=== PATIENT | female | born 1985 | race Caucasian/White ===

== ENCOUNTER 2016-10-04 00:24 | Emergency (ER) | payer MEDICAID ==
[~2016-10-04] VITALS: Ht 162.6 cm; Wt 65.0 kg
[~2016-10-04 00:24] MED LIST: ACET500T98; CEPH-443 PO; IBUP-1542 PO
[2016-10-04 00:42] VITALS: Ht 162.6 cm; Wt 65.0 kg
--- NOTE | 2016-10-04 01:46 | ERD ---
ER Documentation Chief Complaint Date/Time DATE: 10/04/16 TIME: 01:41 Chief Complaint left shoulder pain, left arm pain. anxiety, pelvic pain HPI 22-year-old female presents to emergency department for multiple complaints. Patient's complaining of the shoulder pain radiating into the left arm, chest pain, abdominal pain for 2 days. Patient does complain of left chest pain, left shoulder pain left arm pain, sharp pain, 6/10 scale, not better or worse with anything. Patient also does complain of generalized lower abdominal pain, cramping pain, 6/10 scale, now better or worse with anything. Patient did not take any medications or symptoms. Patient denies any vomiting diarrhea or constipation. Patient also is feeling anxious, patient feels palpitations at times. She denies any trauma on affected areas. ROS All systems reviewed and are negative except as per history of present illness. Medications Home Meds Active Scripts Cephalexin* (Keflex*) 500 Mg Capsule, 500 MG PO QID for 7 Days, CAP Prov:ALEXA SAUNDERS NP 10/04/16 Docusate Sodium* (Colace*) 100 Mg Capsule, 100 MG PO TID, #30 CAP Prov:ALEXA SAUNDERS NP 10/04/16 Polyethylene Glycol* (Miralax*) 17 Gm Powd.pack, 17 GM PO DAILY, #7 Prov:ALEXA SAUNDERS NP 10/04/16 Tramadol HCl (Tramadol HCl) 50 Mg Tablet, 50 MG PO Q6 Y for PAIN, #20 TAB Prov:ALEXA SAUNDERS NP 10/04/16 Ibuprofen* (Motrin*) 600 Mg Tab, 600 MG PO Q6H Y for PAIN AND OR ELEVATED TEMP, #30 TAB Prov:ALEXA SAUNDERS NP 10/04/16 Cephalexin* (Keflex*) 500 Mg Capsule, 500 MG PO QID for 7 Days, CAP Prov:EDUARDO ZABALA MD 07/04/16 Ibuprofen* (Motrin*) 600 Mg Tab, 600 MG PO Q6, #15 TAB Prov:EDUARDO ZABALA MD 07/04/16 Reported Medications Acetaminophen (Tylenol) 500 Mg Tab 11/29/12 Allergies Allergies: Coded Allergies: No Known Allergy (Unverified , 07/04/16) PMhx/Soc Medical and Surgical Hx: pt denies Medical Hx, pt denies Surgical Hx History of Surgery: No Anesthesia Reaction: No Hx Neurological Disorder: No Hx Respiratory Disorders: No Hx Cardiac Disorders: No Hx Psychiatric Problems: No Hx Miscellaneous Medical Probl: No Hx Alcohol Use: No Hx Substance Use: No Hx Tobacco Use: No FmHx Family History: No coronary disease, No diabetes, No other Physical Exam Vitals Vital Signs Date Time Temp Pulse Resp B/P Pulse Ox O2 Delivery O2 Flow Rate FiO2 10/04/16 00:42 98.3 73 20 126/71 100 Physical Exam GENERAL: The patient is well developed and appropriate for usual state of health, in no apparent distress. CHEST: Clear to auscultation bilaterally. There are no rales, wheezes or rhonchi. HEART: Regular rate and rhythm. No murmurs, clicks, rubs or gallops. No S3 or S4. ABDOMEN: Soft, nontender and nondistended. Good bowel sounds. No rebound or guarding. No gross peritonitis. No gross organomegaly or masses. No Bautista sign or McBurney point tenderness. BACK: No midline or flank tenderness. EXTREMITIES: Equal pulses bilaterally. There is no peripheral clubbing, cyanosis or edema. No focal swelling or erythema. Full range of motion. Grossly neurovascularly intact. NEURO: Alert and oriented. Cranial nerves 2-12 intact. Motor strength in all 4 extremities with 5/5 strength. Sensation grossly intact. Normal speech and gait. SKIN: There is no apparent rash or petechia. The skin is warm and dry. HEMATOLOGIC AND LYMPHATIC: There is no evidence of excessive bruising or lymphedema. No gross cervical, axillary, or inguinal lymphadenopathy. Result Diagram: 10/04/1613810/04/16138 Results 24 hrs Laboratory Tests Test 10/04/16 01:39 10/04/16 02:19 Alanine Aminotransferase (ALT/SGPT) 23IU/L Albumin 4.2g/dl Albumin/Globulin Ratio 1.16 Alkaline Phosphatase 76IU/L Anion Gap 17 Aspartate Amino Transf (AST/SGOT) 29IU/L Basophils # 0.010^3/ul Basophils % 0.3% Blood Urea Nitrogen 14mg/dl Calcium Level 8.7mg/dl Carbon Dioxide Level 26mmol/L Chloride Level 104mmol/L Creatinine 0.61mg/dl Direct Bilirubin 0.00mg/dl Eosinophils # 0.110^3/ul Eosinophils % 1.3% Globulin 3.60g/dl Glucose Level 112mg/dl Hematocrit 35.4% Hemoglobin 12.0g/dl Indirect Bilirubin 0.2mg/dl Lipase 114U/L Lymphocytes # 1.910^3/ul Lymphocytes % 24.5% Mean Corpuscular Hemoglobin 30.2pg Mean Corpuscular Hemoglobin Concent 33.9g/dl Mean Corpuscular Volume 89.1fl Mean Platelet Volume 9.8fl Monocytes # 0.510^3/ul Monocytes % 6.7% Neutrophils # 5.210^3/ul Neutrophils % 67.2% Nucleated Red Blood Cells # 0.010^3/ul Nucleated Red Blood Cells % 0.0/100WBC Platelet Count 78788^3/UL Potassium Level 3.5mmol/L Red Blood Count 3.9710^6/ul Red Cell Distribution Width 13.0% Sodium Level 143mmol/L Total Bilirubin 0.2mg/dl Total Protein 7.8g/dl Troponin I < 0.010ng/ml White Blood Count 7.710^3/ul Bedside Urine Blood 3+ Bedside Urine Glucose (UA) Negative Bedside Urine Ketones (LAB) Negative Bedside Urine Leukocyte Esterase (L Trace Bedside Urine Nitrite (LAB) Negative Bedside Urine Protein (LAB) Negative Bedside Urine pH (LAB) 6.0 EKG was done, read by me and is normal sinus rhythm at a rate of 71 normal axis , there is no ST changes or changes in the EKG that indicates any cardiac emergencies at this time. Patient's EKG was also reviewed by Dr. Paz . Impression: no acute findings on EKG PROCEDURE: XR Chest. CLINICAL INDICATION: Chest pain. TECHNIQUE: Single frontal view of the chest was obtained COMPARISON: None FINDINGS: The heart and mediastinum are within normal limits. The lungs are clear. There is no pleural effusion or pneumothorax. IMPRESSION: No acute disease. RPTAT: [facility] Physician Valery Date Time Electronically viewed and signed by Physician Valery on 10/04/2016 01:55 PROCEDURE: XR left shoulder. CLINICAL INDICATION: Left shoulder pain. TECHNIQUE: 2 views of the left shoulder were performed. COMPARISON: None. FINDINGS: There is normal osseous mineralization and alignment. No acute fracture or osseous lesion is identified. There are normal joints without evidence of arthritis or dislocation. The soft tissues are unremarkable. IMPRESSION: Unremarkable left shoulder. RPTAT: [facility] Physician Valery Date Time Electronically viewed and signed by Physician Valery on 10/04/2016 01:54 PROCEDURE: CT ABDOMEN/PELVIS WITHOUT CONTRAST CLINICAL INDICATION: 31-year-old female with abdominal pain. TECHNIQUE: The study was performed utilizing a [employer] 64-slice CT scanner. Direct axial sections were obtained through the abdomen and pelvis without the use of intravenous contrast material. Sagittal and coronal reformations were obtained. Automated exposure control and iterative reconstruction techniques were utilized for this examination. The images were reviewed on a PACS workstation. CTD/vol = 7.6 mGy; Total Exam DLP = 416.3 mGy- cm. COMPARISON: None. FINDINGS: The lung bases are unremarkable. There is no evidence for significant pleural effusion. The liver has a normal size and contour. There is a nonspecific right hepatic calcific density on axial image 3-33 measuring approximately 4 x 4 mm. There is an additional right hepatic calcific density on axial image 3- 41 measuring 6 x 3 mm. No intrahepatic nor extrahepatic biliary ductal dilatation is seen. The gallbladder demonstrates no wall thickening nor pericholecystic fluid. No biliary stones are evident. The pancreas is without areas of abnormal attenuation. The spleen is identified and has a normal size without abnormal density. The adrenal glands are unremarkable. The kidneys are without abnormal density. No hydroureteronephrosis nor nephroureterolithiasis is evident. The urinary bladder contains urine. There is retained stool within the ascending and transverse colon without obstruction.. The appendix is visualized and is without abnormal thickening or surrounding inflammatory reaction. There is an intrauterine device within the uterus. There is a left ovarian cyst measuring approximately 1.8 x 1.1 x 1.3 cm. There is no significant free fluid. Shotty mesenteric lymph nodes are seen. The aortoiliac vessels are without aneurysmal dilatation. The osseous structures are intact. IMPRESSION: 1. Nonspecific right hepatic small calcific densities which may be due to prior granulomatous disease. 2. No CT evidence for obstructive uropathy or renal calculi. 3. Retained stool within the colon without obstruction. 4. No CT evidence for appendicitis. 5. Shotty mesenteric lymph nodes. 6. Left ovarian cyst. 7. Intrauterine device. .Adithya Rogers MD, MD Date Time Electronically viewed and signed by .Adithya Rogers MD, on 10/04/2016 03:01 .M/ Procedures/[facility] Medical Decision Making: Patient's symptoms of abdominal pain is nonspecific at this time, possible constipation related, patient also has ovarian cyst may be causing some of the pain. There is low suspicion for abdominal emergencies at this time. Patients abdominal exam is normal at this time. Patients radiology exam does not show any abdominal emergencies at this time. There is low suspicion for appendicitis, cholecystitis, abdominal aortic aneurysms or peritonitis at this time. There is low suspicion for sepsis. Patient appears well and is hemodynamically stable. Patient's chest pain and shoulder pain is nonspecific, possible musculoskeletal pain. Patient also can have anxiety causing the symptoms. There is low suspicion for cardiopulmonary emergencies at this time. Patient has low risk factors. EKG is normal, there is no changes in the EKG that indicates cardiac emergencies. Chest X-ray does not show cardiopulmonary emergencies at this time. There is low suspicion for aortic aneurysm, myocardial infarction, pneumothorax, pleural effusion, pulmonary embolism, or any other cardiopulmonary emergencies at this time. Cardiac markers are normal. Patient's shoulder and arm pain is most likely consistent with a contusion or a sprain. There is no suspicion for neurovascular compromise. Patient has intact sensation and circulation of the affected extremity. There is low suspicion for septic arthritis. Patient does not have any fever. Radiology exams of the affected area does not show any fracture or dislocation. Patient also had urinary tract infection. There is low suspicion for pyelonephritis. There is low suspicion for abdominal emergencies at this time. Patients abdominal exam is normal. There is low suspicion for sepsis. Patient appears well and is hemodynamically stable. Disposition: Home. Condition: Stable Prescription ibuprofen, Colace, MiraLAX, tramadol, Keflex Instructions: Patient is advised to take medications as prescribed. Patient is advised to rest, increase fluid intake and do brat diet for next 1-2 days and progress as tolerated. Patient is advised that if symptoms are worse, severe abdominal pain, uncontrolled vomiting, high fever, severe flank pain, worst signs and symptoms, to return to the emergency department immediately. Otherwise, patient can follow up with primary care doctor in 5-7 days. Departure Diagnosis: Primary Impression: Constipation Constipation type: unspecified constipation type Qualified Code: K59.00 - Constipation, unspecified constipation type Additional Impressions: Ovarian cyst Laterality: left Qualified Code: N83.202 - Cyst of left ovary Anxiety Shoulder pain Laterality: left Chronicity: acute Qualified Code: M25.512 - Acute pain of left shoulder UTI (urinary tract infection) Urinary tract infection type: acute cystitis Hematuria presence: without hematuria Qualified Code: N30.00 - Acute cystitis without hematuria Condition: Stable Patient Instructions: Anxiety Reaction, Constipation (Adult), Ovarian Cyst, Shoulder Pain (Uncertain Cause) Additional Instructions: Patient is advised to take medications as prescribed. Patient is advised to rest, increase fluid intake and do brat diet for next 1-2 days and progress as tolerated. Patient is advised that if symptoms are worse, severe abdominal pain , uncontrolled vomiting, high fever, severe flank pain, worst signs and symptoms , to return to the emergency department immediately. Otherwise, patient can follow up with primary care doctor in 5-7 days. ALEXA SAUNDERS NP Oct 04, 2016 01:46
--- NOTE | 2016-10-04 01:55 | RADRPT ---
PROCEDURE: XR left shoulder. CLINICAL INDICATION: Left shoulder pain. TECHNIQUE: 2 views of the left shoulder were performed. COMPARISON: None. FINDINGS: There is normal osseous mineralization and alignment. No acute fracture or osseous lesion is identified. There are normal joints without evidence of arthritis or dislocation. The soft tissues are unremarkable. IMPRESSION: Unremarkable left shoulder. RPTAT: [facility] Physician Valery Date Time Electronically viewed and signed by Physician Valery on 10/04/2016 01:54 RS/
--- NOTE | 2016-10-04 01:55 | RADRPT ---
PROCEDURE: XR Chest. CLINICAL INDICATION: Chest pain. TECHNIQUE: Single frontal view of the chest was obtained COMPARISON: None FINDINGS: The heart and mediastinum are within normal limits. The lungs are clear. There is no pleural effusion or pneumothorax. IMPRESSION: No acute disease. RPTAT: [facility]U Physician Valery Date Time Electronically viewed and signed by Nury Peñaloza Physician on 10/04/2016 01:55 RS/
[2016-10-04 01:56] LABS: BASOPHILS % 0.3 % (0.0-2.0); EOSINOPHILS # 0.1 10^3/ul (0.0-0.5); EOSINOPHILS % 1.3 % (0.0-7.0); HEMATOCRIT 35.4 % (37.0-47.0); LYMPHOCYTES # 1.9 10^3/ul (0.8-2.9); LYMPHOCYTES % 24.5 % (15.0-51.0); MEAN CORPUSCULAR HEMOGLOBIN 30.2 pg (29.0-33.0); MEAN CORPUSCULAR HGB CONC 33.9 g/dl (32.0-37.0); MEAN CORPUSCULAR VOLUME 89.1 fl (82.0-101.0); MEAN PLATELET VOLUME 9.8 fl (7.4-10.4); MONOCYTE # 0.5 10^3/ul (0.3-0.9); MONOCYTES % 6.7 % (0.0-11.0); NEUTROPHIL # 5.2 10^3/ul (1.6-7.5); NEUTROPHILS % 67.2 % (39.0-77.0); PLATELET COUNT 168 10^3/UL (140-440); RED BLOOD COUNT 3.97 10^6/ul (4.20-5.40); UNCORRECTED WBC 7.7 10^3/ul (4.8-10.8); WHITE BLOOD COUNT 7.7 10^3/ul (4.8-10.8)
[2016-10-04 02:06] LABS: CONDITION 1
[2016-10-04 02:08] LABS: ALBUMIN 4.2 g/dl (3.3-4.9); CHLORIDE 104 mmol/L (97-110); SODIUM 143 mmol/L (135-144)
[2016-10-04 02:09] LABS: POTASSIUM 3.5 mmol/L (3.5-5.1)
[2016-10-04 02:11] LABS: ALANINE AMINOTRANSFERASE 23 IU/L (13-69); ALBUMIN/GLOBULIN RATIO 1.16; ALKALINE PHOSPHATASE 76 IU/L (42-121); ANION GAP 17 (8-16); ASPARTATE AMINO TRANSFERASE 29 IU/L (15-46); BILIRUBIN,INDIRECT 0.2 mg/dl (0-1.1); BILIRUBIN,TOTAL 0.2 mg/dl (0.2-1.3); BLOOD UREA NITROGEN 14 mg/dl (7-20); CALCIUM 8.7 mg/dl (8.4-10.2); CARBON DIOXIDE 26 mmol/L (21-31); CREATININE 0.61 mg/dl (0.44-1.00); GLUCOSE 112 mg/dl (70-220); TOTAL PROTEIN 7.8 g/dl (6.1-8.1)
[2016-10-04 02:19] LABS: URINE BLOOD (Dip) POC 3+ (NEGATIVE)
[2016-10-04 02:23] LABS: TROPONIN-I < 0.010 ng/ml (0.00-0.12)
--- NOTE | 2016-10-04 03:02 | RADRPT ---
PROCEDURE: CT ABDOMEN/PELVIS WITHOUT CONTRAST CLINICAL INDICATION: 31-year-old female with abdominal pain. TECHNIQUE: The study was performed utilizing a GE xkotopeed VCT 64-slice CT scanner. Direct axia l sections were obtained through the abdomen and pelvis without the use of intravenous contrast mate rial. Sagittal and coronal reformations were obtained. Automated exposure control and iterative aleksander nstruction techniques were utilized for this examination. The [facility] CTD/vol = 7.6 mGy; Total Exam DLP = 416.3 mGy-cm. COMPARISON: None. FINDINGS: The lung bases are unremarkable. There is no evidence for significant pleural effusion. The liver has a normal size and contour. There is a nonspecific right hepatic calcific density on axial image 3-33 measuring approximately 4 x 4 mm. There is an additional right hepatic calcific density on ax ial image 3-41 measuring 6 x 3 mm. No intrahepatic nor extrahepatic biliary ductal dilatation is se en. The gallbladder demonstrates no wall thickening nor pericholecystic fluid. No biliary stones are evident. The pancreas is without areas of abnormal attenuation. The spleen is identified and has a normal size without abnormal density. The adrenal glands are unremarkable. The kidneys are without abnormal density. No hydroureteronephrosis nor nephroureterolithiasis is evident. The urinary bladde r contains urine. There is retained stool within the ascending and transverse colon without obstruct ion.. The appendix is visualized and is without abnormal thickening or surrounding inflammatory reaction. There is an intrauterine device within the uterus. There is a left ovarian cyst measuring approximately 1.8 x 1.1 x 1.3 cm. There is no significant free fluid. Shotty mesenteric lymph nodes are seen. The aortoiliac vessels are without aneurysmal dilatation. The osseous structures are int act. IMPRESSION: 1. Nonspecific right hepatic small calcific densities which may be due to prior granulomatous disea se. 2. No CT evidence for obstructive uropathy or renal calculi. 3. Retained stool within the colon without obstruction. 4. No CT evidence for appendicitis. 5. Shotty mesenteric lymph nodes. 6. Left ovarian cyst. 7. Intrauterine device. .Adithya Rogers MD, Date Time Electronically viewed and signed by .Adithya Rogers MD, MD on 10/04/2016 03:01 .Baljeet/
[2016-10-04] MEDS ORDERED: POLY17PO6 PO (03:13)
[2016-10-04] MEDS ORDERED: DOCU-144 PO (03:13)
[2016-10-04] MEDS ORDERED: IBUP-1542 PO (03:13)
[2016-10-04] MEDS ORDERED: ULT50 PO (03:13)
[2016-10-04] MEDS ORDERED: CEPH-443 PO (03:16)
[2016-10-04 04:29] VITALS: BP 114/74; PULSE 73; RESP 18; TEMP 98.4
== END 2016-10-04 04:29 | disposition home or self-care (01) ==
LOC: FTE 00:24
DX: K59.00 Constipation, unspecified (principal); N83.202 Unspecified ovarian cyst, left side; F41.9 Anxiety disorder, unspecified; N30.00 Acute cystitis without hematuria; R10.2 Pelvic and perineal pain; R07.9 Chest pain, unspecified
CPT/HCPCS: 71010; 73030; 74176; 80053; 81003; 83690; 84484; 85025; 93005; Z7502

== ENCOUNTER 2016-11-09 21:45 | Emergency (ER) | payer MEDICAID ==
[~2016-11-09] VITALS: Ht 152.4 cm; Wt 63.5 kg
[~2016-11-09 21:45] MED LIST changes: +DOCU-144 PO; +POLY17PO6 PO; +TRAM50TA2 PO
[2016-11-09 23:03] VITALS: Ht 152.4 cm; Wt 63.5 kg
[2016-11-10] MEDS ORDERED: ONDANSETRON 4 MG INJ IV STA (00:57)
[2016-11-10] MEDS ORDERED: ACETAMINOPHEN 325 MG TAB PO ONE (01:00)
[2016-11-10] MEDS ORDERED: SOD CHLORIDE 0.9% 1,000 ML IV ONE (01:00)
[2016-11-10 01:55] LABS: ADD UMIC YES; URINE BILIRUBIN (Dip) NEGATIVE (NEGATIVE); URINE BLOOD (Dip) 1+ (NEGATIVE); URINE COLOR LT. YELLOW (YELLOW); URINE GLUCOSE (Dip) NEGATIVE (NEGATIVE); URINE KETONES (Dip) TRACE (NEGATIVE); URINE LEUKOCYTE ESTERASE (Dip) 1+ (NEGATIVE); URINE NITRITE (Dip) NEGATIVE (NEGATIVE); URINE TOTAL PROTEIN (Dip) NEGATIVE (NEGATIVE); URINE UROBILINOGEN (Dip) 0.2 E.U./dL (0.1-1.0)
[2016-11-10 01:55] LABS: BASOPHILS % 0.3 % (0.0-2.0); EOSINOPHILS % 0.2 % (0.0-7.0); HEMOGLOBIN 12.5 g/dl (12.0-16.0); LYMPHOCYTES # 0.5 10^3/ul (0.8-2.9); LYMPHOCYTES % 6.6 % (15.0-51.0); MEAN CORPUSCULAR HEMOGLOBIN 30.4 pg (29.0-33.0); MEAN CORPUSCULAR HGB CONC 33.8 g/dl (32.0-37.0); MEAN CORPUSCULAR VOLUME 89.9 fl (82.0-101.0); MEAN PLATELET VOLUME 10.3 fl (7.4-10.4); MONOCYTE # 0.5 10^3/ul (0.3-0.9); MONOCYTES % 7.6 % (0.0-11.0); NEUTROPHILS % 85.3 % (39.0-77.0); PLATELET COUNT 149 10^3/UL (140-440); RED BLOOD COUNT 4.12 10^6/ul (4.20-5.40); RED CELL DISTRIBUTION WIDTH 13.4 % (11.5-14.5)
[2016-11-10 01:57] LABS: CONDITION 1
[2016-11-10 02:08] LABS: BACTERIA,URINE FEW; SQUAMOUS EPITHELIAL CELL,UR MANY
[2016-11-10 02:26] LABS: ALBUMIN 4.1 g/dl (3.3-4.9)
[2016-11-10 02:27] LABS: POTASSIUM 3.7 mmol/L (3.5-5.1)
[2016-11-10 02:29] LABS: ALBUMIN/GLOBULIN RATIO 1.24; BILIRUBIN,INDIRECT 0.1 mg/dl (0-1.1); BILIRUBIN,TOTAL 0.1 mg/dl (0.2-1.3); CREATININE 0.69 mg/dl (0.44-1.00); TOTAL PROTEIN 7.4 g/dl (6.1-8.1)
[2016-11-10 02:30] LABS: CALCIUM 8.6 mg/dl (8.4-10.2)
--- NOTE | 2016-11-10 02:40 | ERD ---
ER Documentation Chief Complaint Date/Time DATE: 11/10/16 TIME: 02:40 Chief Complaint fever,vomiting,headache HPI 31-year-old female presents with chief complaint of headache, fever, cough, sore throat and vomiting 2 days. She reports diffuse abdominal pain as well. She denies neck stiffness, trauma, dysuria, hematuria, ear pain and altered mental status. She's been taking Tylenol for the fever symptoms, which she states only alleviates her fever temporarily. She denies getting the flu shot this year. She denies any sick contacts at home. And she denies recent travel ROS All systems reviewed and are negative except as per history of present illness. Medications Home Meds Active Scripts Nitrofurantoin Monohyd Macrocr* (Macrobid*) 100 Mg Capsr, 100 MG PO BID for 5 Days, #10 CAP Prov:Lindsey Atkins PA-C 11/10/16 Ibuprofen* (Motrin*) 600 Mg Tab, 600 MG PO Q6, #30 TAB Prov:Lindsey Atkins PA-C 11/10/16 Ondansetron (Ondansetron Odt) 4 Mg Tab.rapdis, 4 MG PO Q6H Y for NAUSEA AND/OR VOMITING, #10 TAB Prov:Lindsey Atkins PA-C 11/10/16 Oseltamivir Phosphate* (Tamiflu*) 75 Mg Capsule, 75 MG PO BID for 5 Days, CAP Prov:Lindsey Atkins PA-C 11/10/16 Cephalexin* (Keflex*) 500 Mg Capsule, 500 MG PO QID for 7 Days, CAP Prov:ALEXA SAUNDERS NP 10/04/16 Docusate Sodium* (Colace*) 100 Mg Capsule, 100 MG PO TID, #30 CAP Prov:ALEXA SAUNDERS NP 10/04/16 Polyethylene Glycol* (Miralax*) 17 Gm Powd.pack, 17 GM PO DAILY, #7 Prov:ALEXA SAUNDERS NP 10/04/16 Tramadol HCl (Tramadol HCl) 50 Mg Tablet, 50 MG PO Q6 Y for PAIN, #20 TAB Prov:ALEXA SAUNDERS NP 10/04/16 Ibuprofen* (Motrin*) 600 Mg Tab, 600 MG PO Q6H Y for PAIN AND OR ELEVATED TEMP, #30 TAB Prov:ALEXA SAUNDERS CALDERÓN TJoanne GARAY 10/04/16 Cephalexin* (Keflex*) 500 Mg Capsule, 500 MG PO QID for 7 Days, CAP Prov:EDUARDO ZABALA MD 07/04/16 Ibuprofen* (Motrin*) 600 Mg Tab, 600 MG PO Q6, #15 TAB Prov:EDUARDO ZABALA MD 07/04/16 Reported Medications Acetaminophen (Tylenol) 500 Mg Tab 11/29/12 Allergies Allergies: Coded Allergies: No Known Allergy (Unverified , 07/04/16) PMhx/Soc Medical and Surgical Hx: pt denies Medical Hx, pt denies Surgical Hx History of Surgery: No Anesthesia Reaction: No Hx Neurological Disorder: No Hx Respiratory Disorders: No Hx Cardiac Disorders: No Hx Psychiatric Problems: No Hx Miscellaneous Medical Probl: No Hx Alcohol Use: No Hx Substance Use: No Hx Tobacco Use: No Smoking Status: Never smoker Physical Exam Vitals Vital Signs Date Time Temp Pulse Resp B/P Pulse Ox O2 Delivery O2 Flow Rate FiO2 11/09/16 23:03 103.5 138 18 102/72 100 Physical Exam GENERAL: Mild distress secondary to body aches and chills. HEENT: Atraumatic. Bilateral eyes are PERRL EOM intact. Normal conjunctiva, no injection. No eyelid or lower eyelid swelling noted. Ears: Normal tympanic membrane, no erythema or bulging. No ear canal swelling. No ear discharge. Nose : no nasal discharge. Throat: Oropharynx normal. Tongue pink and moist. No tonsillar swelling or tonsillar exudates. No lymphadenopathy. LUNGS: Clear to auscultation. No accessory muscle use. No wheezing, no crackles. No signs or symptoms of respiratory distress. HEART: Regular rate and rhythm. No murmurs, clicks, rubs or gallops. ABDOMEN: Soft, nontender and nondistended. Bowel sounds positive. No rebound or guarding. No gross peritoneal signs. No Bautista or McBurney point tenderness. No gross masses. BACK: No midline tenderness, no costovertebral tenderness. NEURO: The patient moves all 4 extremities with 5/5 strength. Cranial nerves are grossly intact. Normal mental status for age. Good muscle tone. SKIN: There is no apparent rash, petechiae, erythema or swelling. Good skin turgor. Result Diagram: 11/10/169911/10/16 0100 Results 24 hrs Laboratory Tests Test 11/10/16 01:00 11/10/16 01:20 Alanine Aminotransferase (ALT/SGPT) 18IU/L Albumin 4.1g/dl Albumin/Globulin Ratio 1.24 Alkaline Phosphatase 76IU/L Anion Gap 20 Aspartate Amino Transf (AST/SGOT) 23IU/L Basophils # 0.010^3/ul Basophils % 0.3% Blood Urea Nitrogen 16mg/dl Calcium Level 8.6mg/dl Carbon Dioxide Level 25mmol/L Chloride Level 103mmol/L Creatinine 0.69mg/dl Direct Bilirubin 0.00mg/dl Eosinophils # 0.010^3/ul Eosinophils % 0.2% Globulin 3.30g/dl Glucose Level 121mg/dl Hematocrit 37.0% Hemoglobin 12.5g/dl Indirect Bilirubin 0.1mg/dl Lactic Acid Level 1.2mmol/L Lipase 118U/L Lymphocytes # 0.510^3/ul Lymphocytes % 6.6% Mean Corpuscular Hemoglobin 30.4pg Mean Corpuscular Hemoglobin Concent 33.8g/dl Mean Corpuscular Volume 89.9fl Mean Platelet Volume 10.3fl Monocytes # 0.510^3/ul Monocytes % 7.6% Neutrophils # 6.010^3/ul Neutrophils % 85.3% Nucleated Red Blood Cells # 0.010^3/ul Nucleated Red Blood Cells % 0.0/100WBC Platelet Count 53855^3/UL Potassium Level 3.7mmol/L Red Blood Count 4.1210^6/ul Red Cell Distribution Width 13.4% Sodium Level 144mmol/L Total Bilirubin 0.1mg/dl Total Protein 7.4g/dl White Blood Count 7.010^3/ul Urine Bacteria FEW Urine Bilirubin NEGATIVE Urine Clarity SL HAZY Urine Color LT. YELLOW Urine Glucose NEGATIVE% Urine Hemoglobin 1+ Urine Ketones TRACE Urine Leukocyte Esterase 1+ Urine Microscopic RBC 2-5/HPF Urine Microscopic WBC 5-10/HPF Urine Nitrite NEGATIVE Urine Specific [place] 1.025 Urine Squamous Epithelial Cells MANY Urine Total Protein NEGATIVE Urine Urobilinogen 0.2 E.U./dL Urine pH 6.0 Current Medications Medications (Trade) Dose Ordered Sig/Lois Route PRN Reason Start Time Stop Time Status Last Admin Dose Admin Acetaminophen 650 mg 650 mg ONCE ONCE PO 11/10/16 01:00 11/10/16 01:02 DC 11/10/16 01:31 Sodium Chloride (NS) 1,000 ml @ 1,000 mls/hr Q1H ONCE IV 11/10/16 01:00 11/10/16 01:59 DC 11/10/16 01:31 Ondansetron HCl (Zofran Inj) 4 mg ONCE STAT IV 11/10/16 00:57 11/10/16 01:02 DC 11/10/16 01:31 Procedures/MDM Patient was on several complaints including diffuse abdominal pain and vomiting. I ordered basic labs as well as a lactic acid to rule out sepsis, however did not call code sepsis as patient is young and otherwise healthy.ordered 1 L of IV fluids. I explained to the patient that her symptoms are likely due to viral etiology, such as influenza. I ordered an influenza swab. Awaiting results of workup prior to further evaluation. CBC: Neutrophilia with no anemia or leukocytosis. CMP: No signs of severe dehydration or hyperglycemia Lipase: 118, pancreatitis unlikely Lactic acid: 1.2, sepsis unlikely UA: 1+ leukocyte esterase, no nitrates (we'll treat for UTI even if results may be due to dirty catch, since the patient presented with 103 fever) POC preg: Negative Influenza A and B swab: Influenza A positive, influenza be negative Patient reported some relief after 1 L of IV fluids and Tylenol. I went over the workup results with the patient.That her fevers likely due to influenza as her rapid swab was positive. This is consistent with the patient's multisystem complaints. Since she falls within the 48 hour timeframe of Tamiflu I'll be giving a prescription for this. In addition I prescribed ibuprofen 6 her milligrams for body aches and fever. I've advised her to continue using Tylenol at home. Continue to stay hydrated drinking plenty of fluids, I prescribed Zofran to prevent nausea. Patient's tympanic membranes were normal, her lungs are clear to auscultation bilaterally, she had no localized tenderness on abdominal exam, she has no CVA tenderness, and no meningismus. At this time I low suspicion for pyelonephritis, acute surgical abdomen, pneumonia, otitis media, meningitis, and sepsis. Patient stable for discharge and outpatient management. Advised to follow-up with PCP in one to 2 days. List of community clinics provided. Departure Diagnosis: Primary Impression: Influenza A Condition: Stable Lindsey Atkins PA-C Nov 10, 2016 02:40
[2016-11-10] MEDS ORDERED: IBUP-1542 PO (02:42)
[2016-11-10] MEDS ORDERED: ONDA4TAB14 PO (02:42)
[2016-11-10] MEDS ORDERED: OSLT75C PO (02:42)
[2016-11-10] MEDS ORDERED: NITR-58 PO (02:42)
[2016-11-10 02:47] VITALS: BP 108/72; PULSE 109; RESP 18; TEMP 99.5
== END 2016-11-10 02:54 | disposition home or self-care (01) ==
LOC: EDUNIT# 21:45 → FTE 21:45
DX: J10.1 Influenza due to other identified influenza virus with other respiratory manifestations (principal); R11.2 Nausea with vomiting, unspecified
CPT/HCPCS: 36415; 80053; 81001; 81003; 83605; 83690; 85025; 87400; 96374; J2405; J7030; Z7502; Z7610

== ENCOUNTER 2017-03-19 11:35 | Emergency (ER) | payer MEDICAID, OTHER ==
[~2017-03-19] VITALS: Ht 152.4 cm; Wt 63.5 kg
[~2017-03-19 11:35] MED LIST changes: +NITR-58 PO; +ONDA4TAB14 PO; +OSLT75C PO
[2017-03-19 12:05] VITALS: Ht 152.4 cm; Wt 63.5 kg
[2017-03-19 13:25] LABS: URINE BLOOD (Dip) POC Negative (NEGATIVE)
--- NOTE | 2017-03-19 13:41 | RADRPT ---
PROCEDURE: Obstetrical ultrasound CLINICAL INDICATION: PAIN TECHNIQUE: Multiple sonographic images of the pelvis were obtained. The images were reviewed on a PACS workstation. COMPARISON: None LMP: 11/29/2016 FINDINGS: The cervix is not well visualized. There is a single viable intrauterine gestation. Cardiac activity is present with 131 beats per minute. There is a variable presentation. The placenta is anterior. There is no evidence for an abruption or placenta previa. There is a normal amount of amniotic fluid with a maximum vertical pocket of 4.8 cm. Measurements were made in order to determine age. The results are as follows (cm): BPD =3.29 HC =12.03 AC =9.90 FL =2.16 Estimated gestational age by ultrasound of approximately 16 weeks, 1 day. The estimated date of delivery by ultrasound is 09/02/2017. Estimated gestational age by LMP of approximately 15 weeks, 5 days. The estimated date of delivery by LMP is 09/05/2017. EFW = 148 grams (72nd percentile) Bilateral ovaries are not visualized. There are no abnormal adnexal masses. IMPRESSION: Single viable intrauterine gestation of approximately 16 weeks, 1 day . The estimated date of delivery is 09/02/2017 . Dating by ultrasound is within 3 days of dating by LMP. Normal amount of amniotic fluid. Estimated weight is in the 72nd percentile. RPTAT: EE Physician Kassidy Date Time Electronically viewed and signed by Physician Kassidy on 03/19/2017 13:41 /
[2017-03-19] MEDS ORDERED: LORA10TA3 PO (14:15)
--- NOTE | 2017-03-19 14:18 | ERD ---
ER Documentation Chief Complaint Date/Time DATE: 03/19/17 TIME: 14:16 Chief Complaint Complains of abdominal pain allerigic reaction in the face HPI This 32-year-old female complains of some mild abdominal pain the presence of a approximately 16 week . She also complains of a rash around her face. She denies any fevers, vomiting, vaginal bleeding, urinary complaints. She denies any specific lower abdominal pain or right-sided abdominal pain. ROS All systems reviewed and are negative except as per history of present illness. Medications Home Meds Active Scripts Loratadine* (Loratadine*) 10 Mg Tablet, 10 MG PO DAILY, #15 TAB Prov:EDUARDO ZABALA MD 03/19/17 Nitrofurantoin Monohyd Macrocr* (Macrobid*) 100 Mg Capsr, 100 MG PO BID for 5 Days, #10 CAP Prov:Lindsey Atkins PA-C 11/10/16 Ibuprofen* (Motrin*) 600 Mg Tab, 600 MG PO Q6, #30 TAB Prov:Lindsey Atkins PA-C 11/10/16 Ondansetron (Ondansetron Odt) 4 Mg Tab.rapdis, 4 MG PO Q6H Y for NAUSEA AND/OR VOMITING, #10 TAB Prov:Lindsey Atkins PA-C 11/10/16 Oseltamivir Phosphate* (Tamiflu*) 75 Mg Capsule, 75 MG PO BID for 5 Days, CAP Prov:Lindsey Atkins PA-C 11/10/16 Cephalexin* (Keflex*) 500 Mg Capsule, 500 MG PO QID for 7 Days, CAP Prov:ALEXA SAUNDERS NP 10/04/16 Docusate Sodium* (Colace*) 100 Mg Capsule, 100 MG PO TID, #30 CAP Prov:ALEXA SAUNDERS NP 10/04/16 Polyethylene Glycol* (Miralax*) 17 Gm Powd.pack, 17 GM PO DAILY, #7 Prov:ALEXA SAUNDERS NP 10/04/16 Tramadol HCl (Tramadol HCl) 50 Mg Tablet, 50 MG PO Q6 Y for PAIN, #20 TAB Prov:ALEXA SAUNDERS NP 10/04/16 Ibuprofen* (Motrin*) 600 Mg Tab, 600 MG PO Q6H Y for PAIN AND OR ELEVATED TEMP, #30 TAB Prov:ALEXA SAUNDERS NP 10/04/16 Cephalexin* (Keflex*) 500 Mg Capsule, 500 MG PO QID for 7 Days, CAP Prov:EDUARDO ZABALA MD 07/04/16 Ibuprofen* (Motrin*) 600 Mg Tab, 600 MG PO Q6, #15 TAB Prov:EDUARDO ZABALA MD 07/04/16 Reported Medications Acetaminophen (Tylenol) 500 Mg Tab 11/29/12 Allergies Allergies: Coded Allergies: No Known Allergy (Unverified , 07/04/16) PMhx/Soc History of Surgery: No Anesthesia Reaction: No Hx Neurological Disorder: No Hx Respiratory Disorders: Yes (URIs) Hx Cardiac Disorders: No Hx Psychiatric Problems: No Hx Miscellaneous Medical Probl: Yes (UTIs) Hx Alcohol Use: No Hx Substance Use: No Hx Tobacco Use: No Smoking Status: Never smoker Physical Exam Vitals Vital Signs Date Time Temp Pulse Resp B/P Pulse Ox O2 Delivery O2 Flow Rate FiO2 03/19/17 12:05 98.6 83 20 106/62 98 Physical Exam Const: [] Alert, not ill-appearing. Head: Atraumatic Eyes: Normal Conjunctiva ENT: Normal External Ears, Nose and Mouth. Scant blanching rash on face without vesicles, streaking induration. Neck: Full range of motion..~ No meningismus. Resp: Clear to auscultation bilaterally Cardio: Regular rate and rhythm, no murmurs Abd: Soft, non tender, non distended. Normal bowel sounds Skin: No petechiae or rashes Back: No midline or flank tenderness Ext: No cyanosis, or edema Neur: Awake and alert Psych: Normal Mood and Affect Results 24 hrs Laboratory Tests Test 03/19/17 13:29 Bedside Urine pH (LAB) 7.5 Bedside Urine Protein (LAB) Trace Bedside Urine Glucose (UA) Negative Bedside Urine Ketones (LAB) Negative Bedside Urine Blood Negative Bedside Urine Nitrite (LAB) Negative Bedside Urine Leukocyte Esterase (L Negative Procedures/MDM Pelvic ultrasound shows a 16 week intrauterine without acute abnormal findings. Urine is negative for leukocytes, nitrates, glucose. Patient presents with nonspecific dermatitis of the face without evidence of cellulitis , life-threatening rashes, purpura. There is some nonspecific abdominal pain of early without signs or symptoms to suggest ectopic , appendicitis, hepatobiliary disease, acute abdomen. Patient was treated with reassurance and further observation at home. She was given a short course of Claritin for her rash. The patient was stable with no new complaints during the ER course. Clinically, there is no current evidence to suggest meningitis, sepsis, acute abdomen, pneumonia, acute coronary syndrome, pulmonary embolism, or any other emergent condition appearing to require further evaluation or hospitalization. The patient should certainly return for any new or worsening symptoms per the aftercare instructions. They should otherwise follow-up with her primary care doctor for reevaluation this week. Departure Diagnosis: Primary Impression: Abdominal pain Abdominal location: lower abdomen, unspecified Qualified Code: R10.30 - Lower abdominal pain Condition: Stable Patient Instructions: Dermatitis, Non-Specific, Abdominal Pain, Early Additional Instructions: Examines normal hoy. Cheque otro vez con chow doctor primario en el proximo khan or regresa para mas o nueva simptomas. EDUARDO ZABALA MD Mar 19, 2017 14:18
== END 2017-03-19 14:23 | disposition home or self-care (01) ==
LOC: FTE 11:35
DX: O26.892 Other specified pregnancy related conditions, second trimester (principal); R10.30 Lower abdominal pain, unspecified; Z3A.16 16 weeks gestation of pregnancy
CPT/HCPCS: 76805; 81003

== ENCOUNTER 2017-04-10 08:04 | Emergency (ER) | payer OTHER ==
[~2017-04-10] VITALS: Ht 157.5 cm; Wt 60.0 kg
[~2017-04-10 08:04] MED LIST changes: +LORA10TA3 PO
[2017-04-10 08:06] VITALS: Ht 157.5 cm; Wt 60.0 kg
--- NOTE | 2017-04-10 09:33 | RADRPT ---
PROCEDURE: Obstetrical ultrasound CLINICAL INDICATION: lower abdominal pain TECHNIQUE: Multiple sonographic images of the pelvis were obtained. The images were reviewed on a PACS workstation. COMPARISON: Obstetrical ultrasound from 03/19/2017 LMP: 11/30/2016 FINDINGS: The cervix is not well visualized. There is a single viable intrauterine gestation. Cardiac activity is present with 143 beats per minute. There is a transverse presentation to maternal right. The placenta is anterior. There is no evidence for an abruption or placenta previa. There is a normal amount of amniotic fluid with a maximum vertical pocket of 5.4 cm. Measurements were made in order to determine age. The results are as follows (cm): BPD =4.38 HC =16.09 AC =14.56 FL =2.67 Estimated gestational age by ultrasound of approximately 19 weeks, 0 days. The estimated date of delivery by ultrasound is 09/04/2017. Estimated gestational age by LMP of approximately 18 weeks, 5 days. The estimated date of delivery by LMP is 09/06/2017. EFW = 271 grams (65th percentile) Bilateral ovaries are not visualized. There are no abnormal adnexal masses. IMPRESSION: Single viable intrauterine gestation of approximately 19 weeks, 0 days . The estimated date of delivery is 09/04/2017 . Dating by ultrasound is within 2 days of dating by LMP. Transverse presentation to maternal right. Estimated weight is in the 65th percentile. RPTAT: EE Physician Kassidy Date Time Electronically viewed and signed by Physician Kassidy on 04/10/2017 09:33 /
[2017-04-10] MEDS ORDERED: ACET500C5 PO (10:10)
[2017-04-10 10:32] VITALS: BP 105/57; PULSE 66; RESP 18; TEMP 98.1
--- NOTE | 2017-04-10 10:41 | ERD ---
ER Documentation Chief Complaint Date/Time DATE: 04/10/17 TIME: 10:35 Chief Complaint left foot pain, 19 weeks HPI 32-year-old female patient with no significant past medical history is currently 19 weeks states that she accidentally slipped and fell on the chair 6 days ago however she did not start to have left foot pain until yesterday. States that she works while standing up and is constantly on her feet. States that she did not have a sudden and abrupt onset of pain of the left foot. Reports that she was trying to fix a curtain in the room. Reports that when she steps on her left foot she starts to get abdominal pain. Denies any vaginal bleeding, vaginal discharge, dysuria, urgency, frequency, nausea, vomiting, diarrhea, constipation, shortness of breath, wheezing, cough. States that her last menses was on November 30, 2016. ROS All systems reviewed and are negative except as per history of present illness. Medications Home Meds Active Scripts Acetaminophen* (Tylophen*) 500 Mg Capsule, 1 CAP PO Q6H Y for PAIN AND OR ELEVATED TEMP, #20 CAP Prov:FRANCOIS GARG PA-C 04/10/17 Loratadine* (Loratadine*) 10 Mg Tablet, 10 MG PO DAILY, #15 TAB Prov:EDUARDO ZABALA MD 03/19/17 Nitrofurantoin Monohyd Macrocr* (Macrobid*) 100 Mg Capsr, 100 MG PO BID for 5 Days, #10 CAP Prov:Lindsey Atkins PA-C 11/10/16 Ibuprofen* (Motrin*) 600 Mg Tab, 600 MG PO Q6, #30 TAB Prov:Lindsey Atkins PA-C 11/10/16 Ondansetron (Ondansetron Odt) 4 Mg Tab.rapdis, 4 MG PO Q6H Y for NAUSEA AND/OR VOMITING, #10 TAB Prov:Lindsey Atkins PA-C 11/10/16 Oseltamivir Phosphate* (Tamiflu*) 75 Mg Capsule, 75 MG PO BID for 5 Days, CAP Prov:Lindsey Atkins PA-C 11/10/16 Cephalexin* (Keflex*) 500 Mg Capsule, 500 MG PO QID for 7 Days, CAP Prov:ALEXA SAUNDERS NP 10/04/16 Docusate Sodium* (Colace*) 100 Mg Capsule, 100 MG PO TID, #30 CAP Prov:ALEXA SAUNDERS MANAGER FRAUD 10/04/16 Polyethylene Glycol* (Miralax*) 17 Gm Powd.pack, 17 GM PO DAILY, #7 Prov:ALEXA SAUNDERS MANAGER FRAUD 10/04/16 Tramadol HCl (Tramadol HCl) 50 Mg Tablet, 50 MG PO Q6 Y for PAIN, #20 TAB Prov:ALEXA SAUNDERS MANAGER FRAUD 10/04/16 Ibuprofen* (Motrin*) 600 Mg Tab, 600 MG PO Q6H Y for PAIN AND OR ELEVATED TEMP, #30 TAB Prov:ALEXA SAUNDERS MANAGER FRAUD 10/04/16 Cephalexin* (Keflex*) 500 Mg Capsule, 500 MG PO QID for 7 Days, CAP Prov:EDUARDO ZABALA MD 07/04/16 Ibuprofen* (Motrin*) 600 Mg Tab, 600 MG PO Q6, #15 TAB Prov:EDUARDO ZABALA MD 07/04/16 Reported Medications Acetaminophen (Tylenol) 500 Mg Tab 11/29/12 Allergies Allergies: Coded Allergies: No Known Allergy (Unverified , 07/04/16) PMhx/Soc Medical and Surgical Hx: pt denies Medical Hx, pt denies Surgical Hx History of Surgery: No Anesthesia Reaction: No Hx Neurological Disorder: No Hx Respiratory Disorders: Yes (URIs) Hx Cardiac Disorders: No Hx Psychiatric Problems: No Hx Miscellaneous Medical Probl: Yes (UTIs) Hx Alcohol Use: No Hx Substance Use: No Hx Tobacco Use: No Physical Exam Vitals Vital Signs Date Time Temp Pulse Resp B/P Pulse Ox O2 Delivery O2 Flow Rate FiO2 04/10/17 08:06 98.1 67 18 100/55 99 Physical Exam Const: [id number]-kay-[id number], well-nourished. In no acute distress. Head: Atraumatic, normocephalic Eyes: Normal Conjunctiva without injection. No purulent discharge. ENT: Normal external ear, nose. Moist oropharynx without tonsillar exudates. Non -erythematous pharynx. Uvula midline. No drooling. No trismus. Neck: No cervical midline tenderness. Full range of motion. No meningismus. No cervical lymphadenopathy. No JVD. Resp: Clear to auscultation bilaterally. No wheezing, rhonchi, rales, or crackles. No accessory muscle use. No retractions. Cardio: Regular rate and rhythm. No murmurs, rubs or gallops. Abd: Soft, slight pelvic cramping, non distended. Normal bowel sounds. No palpable masses. No rebound tenderness. No guarding. Negative McBurney's point. Negative psoas sign. Negative obturator sign. Skin: No petechiae or rashes Back: No midline tenderness. No CVA tenderness. Ext: No cyanosis, or edema. Neur: Awake and alert. Normal gait. Normal coordination. Psych: Normal Mood and Affect Procedures/MDM This is a 32-year-old female patient with no significant past medical history is currently presents to the ED complaining of foot and abdominal pain. Patient is afebrile and nontoxic-appearing. Patient has normal vital signs. Patient was offered to obtain a foot x-ray however she opted out of the x-ray due to the . PROCEDURE: Obstetrical ultrasound CLINICAL INDICATION: lower abdominal pain TECHNIQUE: Multiple sonographic images of the pelvis were obtained. The images were reviewed on a PACS workstation. COMPARISON: Obstetrical ultrasound from 03/19/2017 LMP: 11/30/2016 FINDINGS: The cervix is not well visualized. There is a single viable intrauterine gestation. Cardiac activity is present with 143 beats per minute. There is a transverse presentation to maternal right. The placenta is anterior. There is no evidence for an abruption or placenta previa. There is a normal amount of amniotic fluid with a maximum vertical pocket of 5.4 cm. Measurements were made in order to determine age. The results are as follows (cm): BPD = 4.38 HC = 16.09 AC = 14.56 FL = 2.67 Estimated gestational age by ultrasound of approximately 19 weeks, 0 days. The estimated date of delivery by ultrasound is 09/04/2017. Estimated gestational age by LMP of approximately 18 weeks, 5 days. The estimated date of delivery by LMP is 09/06/2017. EFW = 271 grams (65th percentile) Bilateral ovaries are not visualized. There are no abnormal adnexal masses. IMPRESSION: Single viable intrauterine gestation of approximately 19 weeks, 0 days . The estimated date of delivery is 09/04/2017 . Dating by ultrasound is within 2 days of dating by LMP. Transverse presentation to maternal right. Estimated weight is in the 65th percentile. Low suspicion for symptomatic anemia, ectopic , sepsis, PID, appendicitis, ovarian torsion, tubo-ovarian abscess, surgical abdomen, or other emergent conditions. Patient was educated that there is a risk for threatened . Patient likely did not sustain a fracture since her pain started yesterday and not abruptly after her fall. 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 Patient is placed in a Juan wrap. Splint Assessment: Neurovascularly intact pre and post Juan wrap placement with good fit. Patient's extremity symptoms have stabilized while they have been evaluated in the department and are appropriate for outpatient follow up. No evidence of fractures, dislocations, compartment syndrome, neurologic injury, vascular injury, open joint, open fracture, tendon laceration, septic arthritis, osteomyelitis, DVT, foreign body, or other emergent conditions. Discharge medications: Tylenol Patient to follow up with [facility] in 2 days for further evaluation and treatment. Patient is to return sooner to the ED for any worsening symptoms. Patient's questions were answered. Patient understood and agreed with discharge plan. Departure Diagnosis: Primary Impression: Foot pain Laterality: left Qualified Code: M79.672 - Left foot pain Additional Impression: Abdominal pain affecting Condition: Stable Patient Instructions: Abdominal Pain, Early , Sprain Foot Referrals: [facility] Usted se trimble hecho un examen mdico de control que le indica que no est en roslyn condicin que requiera tratamiento urgente en el Departamento de Emergencia. Un estudio ms profundo y el tratamiento de chow condicin pueden esperar sin ningn riesgo hasta que usted sea atendida/o en el consultorio de chow mdico o roslyn cl kenzie. Es responsabilidad suya arreglar roslyn renny para el seguimiento del larisa. MANEJO DE CONDICIONES NO URGENTES EN EL FUTURO 1) Si usted tiene un mdico de atencin primaria: Usted debera llamar a chow mdico de atencin primaria antes de venir al departamento de emergencia. Despus de las horas de consultorio, chow doctor o chow asociado/a est disponible por telfono. El mdico o enfermero de pato en el servicio telefnico puede asesorarle por renay medio para atender el problema, o larisa contrario se puede programar roslyn renny. 2) Si usted no tiene un mdico de atencin primaria: Llame al mdico o clnica de referencia que aparece abajo yumiko las horas de consultorio para hacer roslyn renny para que le vean. CLINICAS: [facility] [phone] [facility] [phone] [facility] [phone] [address] [facility] [place] [id number] [phone] [facility]. [facility] [phone] [address] [facility]. [phone] [address] [facility]. [facility] () Usted se trimble hecho un examen mdico de control que le indica que no est en roslyn condicin que requiera tratamiento urgente en el Departamento de Emergencia. Un estudio ms profundo y el tratamiento de chow condicin pueden esperar sin ningn riesgo hasta que usted sea atendida/o en el consultorio de chow mdico o roslyn cl kenzie. Es responsabilidad suya arreglar roslyn renny para el seguimiento del larisa. MANEJO DE CONDICIONES NO URGENTES EN EL FUTURO 1) Si usted tiene un mdico de atencin primaria: Usted debera llamar a chow mdico de atencin primaria antes de venir al departamento de emergencia. Despus de las horas de consultorio, chow doctor o chow asociado/a est disponible por telfono. El mdico o enfermero de pato en el servicio telefnico puede asesorarle por renay medio para atender el problema, o larisa contrario se puede programar roslyn renny. 2) Si usted no tiene un mdico de atencin primaria: Llame al mdico o condado institucions de referencia que aparece abajo yumiko las horas de consultorio para hacer roslyn renny para que le vean. SI USTED NO PUEDE PAGAR PARA MIS UN MEDICO puede ir a: [facility] [phone] [place] [address] [facility] [address] [place] [address] [facility] [address] [place] [address] [facility] [address] [place] [id number] [facility] [employer] [employer] [place] [address] [facility] [address] [place] [address] OFFICE FAX [facility] [address] [place], [place] [id number] [facility] [address] [place] [address] [address] ESP[address]ZA [facility] [address], [facility] [address] [address] [address] [place], [place] [id number] [facility] [address] [place], [place] [address] [address] [facility] [id number] - [facility] [address], [facility] [address] [address] [address] [facility], [place] [address] [address] MICHAEL, [address] [address] [place] [address] [facility] Hours: 8:00 am - 5:00 pm Additional Instructions: Visite a chow camilo mcdaniel para un EXAMEN.Regrese a estas instalaciones si no se mejora shireen esperbamos o shireen le dijimos. FRANCOIS GARG PA-C Apr 10, 2017 10:40 FRANCOIS GARG PA-C Apr 10, 2017 10:40
== END 2017-04-10 10:38 | disposition home or self-care (01) ==
LOC: FTE 08:04
DX: O99.89 Other specified diseases and conditions complicating pregnancy, childbirth and the puerperium (principal); O26.892 Other specified pregnancy related conditions, second trimester; R10.2 Pelvic and perineal pain; Z3A.19 19 weeks gestation of pregnancy
CPT/HCPCS: 76805

== ENCOUNTER 2017-06-12 12:40 | Inpatient (IN) | payer OTHER ==
[~2017-06-12] VITALS: Ht 152.4 cm; Wt 69.4 kg
[~2017-06-12 12:40] MED LIST changes: +ACET500C5 PO
[2017-06-12] MEDS ORDERED: LACTATED RINGER'S 1,000 ML IV ONE (13:45)
--- NOTE | 2017-06-12 15:51 | RADRPT ---
PROCEDURE: US OB. Ultrasound cervix CLINICAL INDICATION: Size and dates , spontaneous rupture of membranes TECHNIQUE: Multiple sonographic images of the pelvis and gravid uterus were obtained. In addition , transvaginal images of the cervix were obtained. The images were reviewed on a PACS workstation. COMPARISON: 04/10/17 FINDINGS: The cervix is closed with a length of 5.5 cm. There is a single viable intrauterine gestation. Cardiac activity is present with 125 beats per min [place]. There is a breech presentation. The placenta is anterior fundal. There is no evidence for an abruption or placenta previa. There is a normal amount of amniotic fluid with an RED = 18.5 cm. Measurements were made in order to determine age. The results are as follows: BPD =7.5 cm HC =26.6 cm AC =25.5 cm FL =5.3 cm Estimated gestational age of approximately 29 weeks and 2 days based on ultrasound measurements. Clinical age: 28 weeks and 2 days. The estimated date of delivery is 08/26/17, based on ultrasound measurements. The EFW = 1350 g, 71.9%, based on LMP age. RPTAT: AA IMPRESSION: Single viable intrauterine gestation of approximately 29 weeks and 2 days based on ultrasound measu rements. .Jaime Elena MD, MD Date Time Electronically viewed and signed by .Jaime Elena MD, MD on 06/12/2017 15:50 .S/
[2017-06-12 15:58] VITALS: BP 117/70; PULSE 68; RESP 19; Ht 152.4 cm; Wt 69.4 kg
[2017-06-12] MEDS ORDERED: BETAMET NA PHOS/AC(6 MG/ML) 5ML INJ ONE (16:14)
[2017-06-12] MEDS ORDERED: MAGNESIUM SULFATE 4 GM/100 ML 100 ML ONE (16:15)
[2017-06-12] MEDS ORDERED: MAGNESIUM SULFATE 20 GM/500 ML 500 ML IV ONE (16:15)
--- NOTE | 2017-06-12 16:15 | TRIAGE ---
OB Triage Datetime Report Generated by CPN: 06/12/2017 16:15 Datetime: 06/12/2017 16:12 Stage of : OB Triage Headache: Denies Breath Sounds, Left: Clear and Equal Breath Sounds, Right: Clear and Equal RUQ Epigastric Pain: Denies Labor Evaluation Frequency: 2-3 Monitor Mode: External Duration (sec)2399: 40-60 Quality: Mild Pattern: Normal: <= 5 Contractions in 10 Minutes Resting Tone [place]: Relaxed Heart Rate FHR Baseline Rate: 140 Monitor Mode: External US Variability: Moderate 6-25 bpm Accelerations: 15X15 Category: Category I Comments: PT SITTING HIGH FOWLERS IN BED Pain Assessment Pain Scale: 3 Pain Presence: Intermittent Pain Type: Cramping Pain Location: Back Pain Goal: 3 Pain Relief Measures: Pain Medication Given Vaginal Exam Membrane Status: Intact Datetime: 06/12/2017 16:00 Stage of : OB Triage Headache: Denies Breath Sounds, Left: Clear and Equal Breath Sounds, Right: Clear and Equal RUQ Epigastric Pain: Denies Labor Evaluation Frequency: 2-3 Monitor Mode: External Duration (sec)2399: 40-60 Quality: Mild Pattern: Normal: <= 5 Contractions in 10 Minutes Resting Tone [place]: Relaxed Heart Rate FHR Baseline Rate: 140 Monitor Mode: External US Variability: Moderate 6-25 bpm Accelerations: 15X15 Decelerations: None Category: Category I Pain Assessment Pain Scale: 3 Pain Presence: Intermittent Pain Type: Cramping Pain Location: Back Pain Goal: 3 Pain Relief Measures: Pain Medication Given Vaginal Exam Membrane Status: Intact Datetime: 06/12/2017 15:00 Headache: Denies Blurred Vision: No Respiratory Effort: Unlabored Breath Sounds, Left: Clear and Equal Breath Sounds, Right: Clear and Equal RUQ Epigastric Pain: Denies Facial Edema: None Labor Evaluation Frequency: 2-5 Monitor Mode: External Duration (sec)2399: 40-60 Quality: Mild Pattern: Normal: <= 5 Contractions in 10 Minutes Resting Tone [place]: Relaxed Heart Rate FHR Baseline Rate: 140 Monitor Mode: External US Variability: Moderate 6-25 bpm Accelerations: 15X15 Decelerations: None Category: Category I Pain Assessment Pain Scale: 3 Pain Presence: Intermittent Pain Type: Cramping Pain Location: Back Pain Goal: 3 Pain Relief Measures: Pain Medication Given Vaginal Exam Membrane Status: Intact Datetime: 06/12/2017 14:21 Stage of : OB Triage Datetime: 06/12/2017 14:00 Maternal Assessment Level of Consciousness: Fully Conscious DTR's/Clonus: DTRs 1+ Headache: Denies Blurred Vision: No RUQ Epigastric Pain: Denies Facial Edema: None Monitor Mode: External Quality: Mild Pattern: Normal: <= 5 Contractions in 10 Minutes Resting Tone [place]: Relaxed Heart Rate FHR Baseline Rate: 135 Monitor Mode: External US Variability: Moderate 6-25 bpm Accelerations: 15X15 Decelerations: None Category: Category I Vaginal Exam Membrane Status: Intact Datetime: 06/12/2017 13:26 Monitor Mode: External US Datetime: 06/12/2017 13:14 DTR's/Clonus: DTRs 1+ Headache: Denies Blurred Vision: No Respiratory Effort: Unlabored Breath Sounds, Left: Clear and Equal Breath Sounds, Right: Clear and Equal RUQ Epigastric Pain: Denies Facial Edema: None Labor Evaluation Frequency: 2-3 Monitor Mode: External Duration (sec)2399: 40-60 Quality: Mild Pattern: Normal: <= 5 Contractions in 10 Minutes Resting Tone [place]: Relaxed Heart Rate FHR Baseline Rate: 135 Monitor Mode: External US Variability: Moderate 6-25 bpm Accelerations: 15X15 Decelerations: None Category: Category I Vaginal Exam Membrane Status: Intact Datetime: 06/12/2017 13:00 Assessment Type: Triage Maternal Assessment Level of Consciousness: Fully Conscious DTR's/Clonus: DTRs 2+; No Clonus Headache: Denies Blurred Vision: No Respiratory Effort: Unlabored; Regular Rhythm; Equal Expansion Breath Sounds, Left: Clear and Equal Breath Sounds, Right: Clear and Equal Nausea/Vomiting: Denies RUQ Epigastric Pain: Denies Lower Extremities Edema: None Degree: None Upper Extremities Edema: None Degree: None Facial Edema: None Fall Risk Assessment History of Falling: (0) No Secondary Diagnosis: (0) No Ambulatory Aid: (0) Bedrest/Nurse Assist IV Therapy: (0) No Gait: (0) Normal/Bedrest/Immobile Mental Status: (0) Oriented to Own Ability Fall Score: 0 Fall Risk Score Definition: No Risk: No action required Datetime: 06/12/2017 12:50 EGA: 28.2 Datetime: 06/12/2017 12:40 Time of Arrival: 06/12/2017 12:40 Arrived By: Ambulatory Arrived From: Home Chief Complaint: PT CAME IN C/O LEAKING FLUID SINCE YESTRDAY AT 0700 AM AND UC'S SINCE TODAY AND V AGINAL PRESSURE AT 0600. STATES + MOVEMENT AND DENIES ANY OTHER COMPLAINT AT THIS TIME Movement: Present Contractions: Regular Time Contractions Began: 06/12/2017 06:00 Contractions: 2 HR Rupture of Membranes: Unsure Vaginal Discharge: Denies Recent Sexual Intercouse: Denies Abdominal Trauma: Not Applicable Additional Patient Complaints: NONE Time Provider Notified: 06/12/2017 13:00 Provider Notified: KAMI Initial Plan: MONITOR
[2017-06-12] MEDS: LACTATED RINGER'S 1,000 ML IV SCH (16:41)
[2017-06-12] MEDS: BETAMET NA PHOS/AC(6 MG/ML) 5ML INJ IM SCH (16:41)
[2017-06-12] MEDS: MAGNESIUM SULFATE 20 GM/500 ML 500 ML IV SCH (16:53)
[2017-06-12] MEDS ORDERED: MAGNESIUM SULFATE 4 GM/100 ML 100 ML IVPB ONE (17:00)
[2017-06-12] MEDS ORDERED: ACETAMINOPHEN 325 MG TAB PO PRN (17:30)
[2017-06-12 17:48] LABS: BASOPHILS % 0.2 % (0.0-2.0); EOSINOPHILS # 0.1 10^3/ul (0.0-0.5); EOSINOPHILS % 1.2 % (0.0-7.0); HEMOGLOBIN 11.6 g/dl (12.0-16.0); LYMPHOCYTES # 1.8 10^3/ul (0.8-2.9); LYMPHOCYTES % 20.7 % (15.0-51.0); MEAN CORPUSCULAR HEMOGLOBIN 31.8 pg (29.0-33.0); MEAN CORPUSCULAR HGB CONC 34.1 g/dl (32.0-37.0); MEAN CORPUSCULAR VOLUME 93.2 fl (82.0-101.0); MEAN PLATELET VOLUME 11.6 fl (7.4-10.4); MONOCYTE # 0.5 10^3/ul (0.3-0.9); MONOCYTES % 5.9 % (0.0-11.0); NEUTROPHIL # 6.1 10^3/ul (1.6-7.5); NEUTROPHILS % 71.5 % (39.0-77.0); PLATELET COUNT 192 10^3/UL (140-415); RED BLOOD COUNT 3.65 10^6/ul (4.20-5.40); RED CELL DISTRIBUTION WIDTH 12.8 % (11.5-14.5); WHITE BLOOD COUNT 8.6 10^3/ul (4.8-10.8)
--- NOTE | 2017-06-12 18:13 | HP ---
Date/Time of Note Date/Time of Note DATE: 06/12/17 TIME: 18:07 OB - History Hx of Present Chief Complaint: contractions and leakage of fluid Estimated Due Date: Sep 02, 2017 : 4 Para: 3 Spontaneous : 0 Care: Good Care Ultrasounds: Normal mid trimester US Obstetrical Complications: None Medical Complications: None Past Family/Social History * Past Medical, Surgical, Family and Obstetric Histories reviewed from chart. OB Admission Exam Vital Signs Vital Signs Vital Signs Date Time Temp Pulse Resp B/P Pulse Ox O2 Delivery O2 Flow Rate FiO2 06/12/17 15:58 98.6 68 19 117/70 99 Room Air Physical Exam HEENT: WNL Heart: Rhythm Normal Lungs: Clear, Equal Abdomen: WNL Extremities: Normal Reflexes: Normal Membranes: Intact Heart Rate: 130's Contractions on Admission: < 5 Minutes Apart Last 72 hours Lab Results CBC & BMP 06/12/17 17:11 OB Assessment/Plan Reason for admission: IUP - Other Assessment: threatened labor Plan: Other Other plan: Admit IV magnesium sulfate IM betamethasone Perinatology consult Neonatology consult YADY MCCLURE MD Jun 12, 2017 18:13
[2017-06-12 18:24] LABS: PROTIME 13.2 Sec (12.2-14.2)
[2017-06-12 18:25] LABS: PARTIAL THROMBOPLASTIN TIME 29.9 Sec (25.0-35.0)
[2017-06-12 18:28] LABS: ALBUMIN 3.1 g/dl (3.3-4.9); ALBUMIN/GLOBULIN RATIO 0.96; BILIRUBIN,INDIRECT 0.2 mg/dl (0-1.1); BILIRUBIN,TOTAL 0.2 mg/dl (0.2-1.3); CALCIUM 8.4 mg/dl (8.4-10.2); CREATININE 0.41 mg/dl (0.44-1.00); POTASSIUM 3.2 mmol/L (3.5-5.1); TOTAL PROTEIN 6.3 g/dl (6.1-8.1)
[2017-06-13] MEDS ORDERED: AL HYDROX/MG HYDROX/SIMETH 30 ML CUP PO PRN (02:00)
[2017-06-13] MEDS: MAGNESIUM SULFATE 20 GM/500 ML 500 ML IV SCH ×3 (03:11→19:40)
[2017-06-13] MEDS: LACTATED RINGER'S 1,000 ML IV SCH ×2 (05:29→15:49)
[2017-06-13] MEDS: FERROUS SULFATE (EC) 325 MG TAB PO SCH (09:53)
[2017-06-13] MEDS: PRENATAL VITAMIN PO SCH (09:53)
[2017-06-13] MEDS: DOCUSATE SODIUM 100 MG CAP PO SCH (09:59)
--- NOTE | 2017-06-13 15:39 | QN ---
Documentation Comment patient feels better. No new complaint Afebrile VSS Strip Reactive stable Continue with present care. YADY MCCLURE MD Jun 13, 2017 15:39
--- NOTE | 2017-06-13 16:06 | CONS ---
DATE OF ADMISSION: 06/12/2017 DATE OF CONSULTATION: 06/13/2017 PERINATOLOGY CONSULTATION: The patient is a 32-year-old, G4, P3, at 28 weeks and 2 days, presented with complaint of contractions. Cervical length apparently was 5.5 cm, but she had a positive fibronectin. She was placed on magnesium sulfate, given betamethasone. Currently she is stable. Her OB history significant for delivery of twins at 36 weeks, otherwise negative beginning. RECOMMENDATIONS: Continue with the magnesium sulfate on for 12 hours after the 2nd dose of betamethasone is given. After that, monitor for about 4-6 hours. If there are no contractions and cervical exam remains unchanged, she can be discharged home. Given the cervical length of 5.5 cm, if she remains the same, then Procardia for maintenance would not be recommended. However, you can use your judgment as it will not have adverse effect if decided to do so. Dictated By: Cathi Meza MD /[email or web address] /Document#: [id number]
[2017-06-13] MEDS: BETAMET NA PHOS/AC(6 MG/ML) 5ML INJ IM SCH (16:40)
[2017-06-14] MEDS: LACTATED RINGER'S 1,000 ML IV SCH ×3 (03:57→22:43)
[2017-06-14] MEDS: DOCUSATE SODIUM 100 MG CAP PO SCH (10:12)
[2017-06-14] MEDS: PRENATAL VITAMIN PO SCH (10:13)
[2017-06-14] MEDS: FERROUS SULFATE (EC) 325 MG TAB PO SCH (10:13)
--- NOTE | 2017-06-14 16:58 | QN ---
Documentation Comment iup 29 weeks pretemr ucx vss exam wnl a/p iup 29 weeks nifedepine po poss dc in am if stable ANDREW ROCHA MD Jun 14, 2017 16:57
[2017-06-14] MEDS: NIFEdipine 10 MG CAP PO SCH (17:14)
[2017-06-15] MEDS: NIFEdipine 10 MG CAP PO SCH ×4 (00:02→17:37)
[2017-06-15] MEDS: LACTATED RINGER'S 1,000 ML IV SCH (08:07)
[2017-06-15] MEDS: FERROUS SULFATE (EC) 325 MG TAB PO SCH (08:44)
[2017-06-15] MEDS: PRENATAL VITAMIN PO SCH (08:44)
[2017-06-15] MEDS: DOCUSATE SODIUM 100 MG CAP PO SCH (08:44)
--- NOTE | 2017-06-15 19:07 | QN ---
Documentation Comment No complaint Afebrile VSS Strip appropriate for GA No contractions Patient has been stable off magnesium sulfate Per recommendation of Perinatology, will d/c home. YADY MCCLURE MD Jun 15, 2017 19:07
--- NOTE | 2017-06-15 19:09 | DS ---
Date/Time of Note Date/Time of Note DATE: 06/15/17 TIME: 19:08 Obstetrical Discharge Record Final Diagnosis Final Diagnosis: not delivered Complications Labor Tocolytics: Magnesium Sulfate Condition on Discharge Physical Assessment Voiding: Yes Bowel Movement: Yes Calf Tenderness: No Patient Condition: Stable YADY MCCLURE MD Jun 15, 2017 19:09
== END 2017-06-15 19:45 | disposition home or self-care (01) | DRG 780 ==
LOC: OBT 12:40 → L-D 12:42 → OBG 16:00 → OBT 16:00
PROVIDERS: ADMIT Obstetrics & Gynecology; ATTEND Obstetrics & Gynecology
DX: O47.02 False labor before 37 completed weeks of gestation, second trimester (principal); Z3A.28 28 weeks gestation of pregnancy
CPT/HCPCS: 36415; 76815; 76817; 80053; 82731; 83735; 84112; 85025; 85610; 85730; 86592; 86850; 86870; 86900; 86901; 87086; 96360; 96361; G0463; J0702; J3475; J7120

== ENCOUNTER 2017-08-20 14:42 | Inpatient (IN) | payer OTHER ==
[~2017-08-20] VITALS: Ht 152.4 cm; Wt 72.2 kg
[2017-08-20 15:32] VITALS: Ht 152.4 cm; Wt 72.2 kg
[2017-08-20 15:33] VITALS: BP 100/67; PULSE 72; RESP 18
[2017-08-20] MEDS ORDERED: FERR325T5 PO (15:36)
[2017-08-20] MEDS ORDERED: PREN-99 PO (15:36)
--- NOTE | 2017-08-20 16:25 | HP ---
Date/Time of Note Date/Time of Note DATE: 08/20/17 TIME: 16:16 OB - History Hx of Present Free Text/Dictation 38 weeks 09/30 31 years old female admitted to the hospital via triage unit with chief complaint of generalized body itch ,suspected cholestasis of ,blood was send out for bile acid from [facility] result not available. Patient has mild contraction, pelvic examination; cervix 1 cm dilated 40% effaced vertex at -1 station contractions for report requires labor augmentation patient transferred from triage to L&D to augment her labor dissipating vaginal delivery Chief Complaint: 38 weeks 1 day mild contraction generalized body itch Estimated Due Date: Aug 31, 2017 : 4 Para: 3 Care: Limited Care Ultrasounds: Normal mid trimester US Obstetrical Complications: None, Other (Suspected cholestasis of ) Medical Complications: None Past Family/Social History * Past Medical, Surgical, Family and Obstetric Histories reviewed from chart. Rubella: immune RPR/VDRL: Negative GBS Status: Negative OB Admission Exam Vital Signs Vital Signs Vital Signs Date Time Temp Pulse Resp B/P Pulse Ox O2 Delivery O2 Flow Rate FiO2 08/20/17 15:33 98.5 72 18 100/67 Room Air Physical Exam HEENT: WNL Heart: Rhythm Normal Lungs: Clear, Equal Abdomen: WNL Extremities: Normal Reflexes: Normal Cervical Dilatation: 1cm Effacement: 50% Station: -1 Membranes: Intact Heart Rate: 130's Accelerations: Accelerations Present Decelerations: No Decelerations Varibility: Moderate Contractions on Admission: >10 Minutes Apart Intensity: Mild OB Assessment/Plan Reason for admission: other (38 weeks 1 day complaining of generalized body H suspected cholestasis of in early labor) Other plan: 31 years old EDC August 31 admitted at 38 weeks and 1/7 day of with chief complaint of generalized body H suspected cholestasis of blood send out for bile acid, results want be available for another 4-5 days, she has mild contraction requires labor augmentation, she was transferred from triage to labor and delivery for labor augmentation. RONNY HERNÁNDEZ MD Aug 20, 2017 16:25
[2017-08-20] MEDS ORDERED: HYDROCODONE/APAP (5/325) TAB PO PRN (16:30)
[2017-08-20] MEDS ORDERED: OXYTOCIN 30 UNITS/LR 500 ML IV SCH ×2 (16:30)
[2017-08-20] MEDS ORDERED: LACTATED RINGER'S 1,000 ML IV PRN (16:30)
[2017-08-20] MEDS ORDERED: IBUPROFEN 600 MG TAB PO PRN (16:30)
[2017-08-20] MEDS ORDERED: MISOPROSTOL 200 MCG TAB PR PRN (16:30)
[2017-08-20] MEDS ORDERED: DINOPROSTONE 10 MG VAG SUPP VAG ONE (16:30)
[2017-08-20] MEDS ORDERED: LIDOCAINE 1% (MPF) 30 ML INJ INJ PRN (16:30)
[2017-08-20] MEDS ORDERED: METHYLERGONOVINE 0.2 MG INJ IM PRN (16:30)
[2017-08-20] MEDS ORDERED: CARBOPROST 250 MCG INJ IM PRN (16:30)
[2017-08-20] MEDS ORDERED: OXYTOCIN 30 UNITS/LR 500 ML IV PRN (16:30)
[2017-08-20] MEDS ORDERED: BUTORPHANOL 2 MG INJ IV PRN ×2 (16:30)
[2017-08-20] MEDS: LACTATED RINGER'S 1,000 ML IV SCH (17:23)
--- NOTE | 2017-08-20 17:32 | TRIAGE ---
OB Triage Datetime Report Generated by CPN: 08/20/2017 17:30 Datetime: 08/20/2017 16:06 Vaginal Exam Dilatation (cms): 1.0 Effacement (%): 40 Station: -1 Exam By: Dr Garza Datetime: 08/20/2017 15:25 Stage of : OB Triage Maternal Assessment Level of Consciousness: Fully Conscious DTR's/Clonus: DTRs 2+; No Clonus Headache: Denies Blurred Vision: No Respiratory Effort: Unlabored; Regular Rhythm; Equal Expansion Breath Sounds, Left: Clear and Equal Breath Sounds, Right: Clear and Equal Nausea/Vomiting: Denies RUQ Epigastric Pain: Denies Lower Extremities Edema: None Degree: None Upper Extremities Edema: None Degree: None Facial Edema: None Temperature Route: Oral Fall Risk Assessment History of Falling: (0) No Secondary Diagnosis: (0) No Ambulatory Aid: (0) Bedrest/Nurse Assist IV Therapy: (0) No Gait: (0) Normal/Bedrest/Immobile Mental Status: (0) Oriented to Own Ability Fall Score: 0 Fall Risk Score Definition: No Risk: No action required Labor Evaluation Frequency: x1 Monitor Mode: External Duration (sec)2399: 50 Quality: Mild Heart Rate FHR Baseline Rate: 130 Monitor Mode: External US FHR Baseline Changes: No Baseline Change Variability: Moderate 6-25 bpm Accelerations: 15X15 Decelerations: None Category: Category I Pain Assessment Pain Scale: 3 Pain Presence: Intermittent Pain Type: Contraction Pain Location: Abdomen Datetime: 06/15/2017 19:35 Stage of : Antepartum Datetime: 06/15/2017 19:25 Stage of : Antepartum Pain Assessment Pain Scale: 0 Pain Presence: None/Denies Pain Type: N/A Pain Assessment Comments: Pt denies any pain, cramping, leaking of fluid, or bleeding. Happy to be going home. Datetime: 06/15/2017 19:07 Time of Arrival: 08/20/2017 14:30 EGA: 38.1 Arrived By: Ambulatory Arrived From: Dr. Stone Chief Complaint: itchiness Movement: Present Contractions: Regular Time Contractions Began: 08/20/2017 12:00 Contractions: 30 Rupture of Membranes: Denies Vaginal Bleeding: None Vaginal Discharge: Present Recent Sexual Intercouse: Denies Abdominal Trauma: Not Applicable Patient Complaints: Contractions; Other Additional Patient Complaints: pt was sent to the hospital by the clinic because of itchiness, kari e acids were drawn today in the clinic Time Provider Notified: 08/20/2017 15:42 Provider Notified: Dr Garza Initial Plan: NST Datetime: 06/15/2017 18:50 Headache: Denies Blurred Vision: No Pain Presence: None/Denies Datetime: 06/15/2017 18:00 Stage of : Antepartum Maternal Assessment Level of Consciousness: Fully Conscious Labor Evaluation Frequency: 0/hr Monitor Mode: External Heart Rate FHR Baseline Rate: 145 Monitor Mode: External US Variability: Moderate 6-25 bpm Accelerations: 10X10 Decelerations: None Pain Assessment Pain Scale: 0 Pain Presence: None/Denies Datetime: 06/15/2017 17:00 Stage of : Antepartum Maternal Assessment Level of Consciousness: Fully Conscious Labor Evaluation Frequency: 0/hr Monitor Mode: External Heart Rate FHR Baseline Rate: 145 Monitor Mode: External US Variability: Moderate 6-25 bpm Accelerations: 10X10 Decelerations: None Pain Assessment Pain Scale: 0 Pain Presence: None/Denies Datetime: 06/15/2017 16:02 Stage of : Antepartum Maternal Assessment Level of Consciousness: Fully Conscious Temperature Route: Oral Labor Evaluation Frequency: 0/hr Monitor Mode: External Heart Rate FHR Baseline Rate: 145 Monitor Mode: External US Variability: Moderate 6-25 bpm Accelerations: 10X10 Decelerations: None Pain Assessment Pain Scale: 0 Pain Presence: None/Denies Datetime: 06/15/2017 15:09 Resting Tone [place]: Relaxed Pain Presence: None/Denies Datetime: 06/15/2017 15:00 Stage of : Antepartum Maternal Assessment Level of Consciousness: Fully Conscious Labor Evaluation Frequency: 0/hr Monitor Mode: External Monitor Mode: External US Variability: Moderate 6-25 bpm Accelerations: 15X15 Decelerations: None Pain Assessment Pain Scale: 0 Pain Presence: None/Denies Datetime: 06/15/2017 14:40 Pain Presence: None/Denies Datetime: 06/15/2017 14:00 Stage of : Antepartum Maternal Assessment Level of Consciousness: Fully Conscious Labor Evaluation Frequency: 0/hr Monitor Mode: External Heart Rate FHR Baseline Rate: 150 Monitor Mode: External US Variability: Moderate 6-25 bpm Accelerations: 15X15 Decelerations: None Pain Assessment Pain Scale: 0 Pain Presence: None/Denies Datetime: 06/15/2017 13:00 Stage of : Antepartum Maternal Assessment Level of Consciousness: Fully Conscious Labor Evaluation Frequency: 0/hr Monitor Mode: External Heart Rate FHR Baseline Rate: 150 Monitor Mode: External US Variability: Moderate 6-25 bpm Accelerations: 15X15 Decelerations: None Pain Assessment Pain Scale: 0 Pain Presence: None/Denies Datetime: 06/15/2017 11:54 Stage of : Antepartum Labor Evaluation Frequency: 0/hr Monitor Mode: External Datetime: 06/15/2017 11:00 Stage of : Antepartum Maternal Assessment Level of Consciousness: Fully Conscious Labor Evaluation Frequency: 0/hr Monitor Mode: External Heart Rate FHR Baseline Rate: 150 Monitor Mode: External US Variability: Moderate 6-25 bpm Accelerations: 15X15 Decelerations: None Pain Assessment Pain Scale: 0 Pain Presence: None/Denies Datetime: 06/15/2017 10:00 Stage of : Antepartum Maternal Assessment Level of Consciousness: Fully Conscious Labor Evaluation Frequency: 0/hr Monitor Mode: External Heart Rate FHR Baseline Rate: 145 Monitor Mode: External US Pain Assessment Pain Scale: 0 Pain Presence: None/Denies Datetime: 06/15/2017 09:00 Stage of : Antepartum Maternal Assessment Level of Consciousness: Fully Conscious Labor Evaluation Frequency: 0/hr Monitor Mode: External Heart Rate FHR Baseline Rate: 145 Monitor Mode: External US Pain Assessment Pain Scale: 0 Pain Presence: None/Denies Datetime: 06/15/2017 08:46 Comments: loss of contact w/ pt. sitting up for breakfast Pain Presence: None/Denies Datetime: 06/15/2017 08:36 Labor Evaluation Frequency: 0/hr Monitor Mode: External Resting Tone [place]: Relaxed Heart Rate FHR Baseline Rate: 145 Variability: Moderate 6-25 bpm Decelerations: Variable Comments: x1 variable about 15 sec.s return to baseline Datetime: 06/15/2017 08:09 Resting Tone [place]: Relaxed Datetime: 06/15/2017 07:52 Maternal Assessment Level of Consciousness: Fully Conscious DTR's/Clonus: DTRs 2+ Headache: Denies Blurred Vision: No Respiratory Effort: Unlabored Nausea/Vomiting: Denies RUQ Epigastric Pain: Denies Datetime: 06/15/2017 07:44 Assessment Type: Ongoing Assessment Maternal Assessment Level of Consciousness: Fully Conscious DTR's/Clonus: DTRs 2+; No Clonus Headache: Denies Blurred Vision: No Respiratory Effort: Unlabored; Regular Rhythm; Equal Expansion Breath Sounds, Left: Clear and Equal Breath Sounds, Right: Clear and Equal Nausea/Vomiting: Denies RUQ Epigastric Pain: Denies Lower Extremities Edema: None Degree: None Upper Extremities Edema: None Degree: None Facial Edema: None Fall Risk Assessment History of Falling: (0) No Secondary Diagnosis: (0) No Ambulatory Aid: (0) Bedrest/Nurse Assist IV Therapy: (20) Yes Gait: (0) Normal/Bedrest/Immobile Mental Status: (0) Oriented to Own Ability Fall Score: 20 Fall Risk Score Definition: No Risk: No action required Datetime: 06/15/2017 07:41 Heart Rate FHR Baseline Rate: 150 Monitor Mode: External US Variability: Moderate 6-25 bpm Accelerations: 15X15 Decelerations: None Comments: ega 28.5 Datetime: 06/15/2017 07:00 Labor Evaluation Frequency: 0 Monitor Mode: External Resting [place]one [place]: Relaxed Heart Rate FHR Baseline Rate: 140 Monitor Mode: External US FHR Baseline Changes: No Baseline Change Variability: Moderate 6-25 bpm Accelerations: 15X15 Decelerations: None Category: Category I Datetime: 06/15/2017 06:08 Stage of : Antepartum Temperature Route: Oral Pain Assessment Pain Scale: 0 Pain Presence: None/Denies Pain Type: N/A Datetime: 06/15/2017 06:00 Labor Evaluation Frequency: 0 Monitor Mode: External Resting [place]one [place]: Relaxed Heart Rate FHR Baseline Rate: 135 Monitor Mode: External US FHR Baseline Changes: No Baseline Change Variability: Moderate 6-25 bpm Accelerations: 15X15 Decelerations: None Category: Category I Datetime: 06/15/2017 05:00 Labor Evaluation Frequency: 0 Monitor Mode: External Resting [place]: Relaxed Heart Rate FHR Baseline Rate: 135 Monitor Mode: External US FHR Baseline Changes: No Baseline Change Variability: Moderate 6-25 bpm Accelerations: 15X15 Decelerations: None Category: Category I Datetime: 06/15/2017 04:00 Labor Evaluation Frequency: 0 Monitor Mode: External Resting [place]: Relaxed Heart Rate FHR Baseline Rate: 135 Monitor Mode: External US FHR Baseline Changes: No Baseline Change Variability: Moderate 6-25 bpm Accelerations: 15X15 Decelerations: None Category: Category I Pain Assessment Pain Scale: SLEEPING Datetime: 06/15/2017 03:00 Labor Evaluation Frequency: 0 Monitor Mode: External Resting [place]: Relaxed Heart Rate FHR Baseline Rate: 135 Monitor Mode: External US FHR Baseline Changes: No Baseline Change Variability: Moderate 6-25 bpm Accelerations: 15X15 Decelerations: None Category: Category I Datetime: 06/15/2017 02:00 Labor Evaluation Frequency: x1 Monitor Mode: External Duration (sec)2399: 60 Quality: Mild Pattern: Normal: <= 5 Contractions in 10 Minutes Resting Tone [place]: Relaxed Heart Rate FHR Baseline Rate: 135 Monitor Mode: External US FHR Baseline Changes: No Baseline Change Variability: Moderate 6-25 bpm Accelerations: 15X15 Decelerations: None Category: Category I Datetime: 06/15/2017 01:00 Labor Evaluation Frequency: 0 Monitor Mode: External Resting [place]: Relaxed Heart Rate FHR Baseline Rate: 135 Monitor Mode: External US FHR Baseline Changes: No Baseline Change Variability: Moderate 6-25 bpm Accelerations: 15X15 Decelerations: None Category: Category I Datetime: 06/15/2017 00:00 Labor Evaluation Frequency: 0 Monitor Mode: External Resting [place]: Relaxed Heart Rate FHR Baseline Rate: 140 Monitor Mode: External US FHR Baseline Changes: No Baseline Change Variability: Moderate 6-25 bpm Accelerations: 15X15 Decelerations: None Category: Category I Datetime: 06/14/2017 23:00 Labor Evaluation Frequency: 0 Monitor Mode: External Resting [place]: Relaxed Heart Rate FHR Baseline Rate: 140 Monitor Mode: External US FHR Baseline Changes: No Baseline Change Variability: Moderate 6-25 bpm Accelerations: 15X15 Decelerations: None Category: Category I Datetime: 06/14/2017 22:00 Labor Evaluation Frequency: 0 Monitor Mode: External Heart Rate FHR Baseline Rate: 135 Monitor Mode: External US FHR Baseline Changes: No Baseline Change Variability: Moderate 6-25 bpm Accelerations: 15X15 Decelerations: None Category: Category I Datetime: 06/14/2017 21:18 Stage of : Antepartum Temperature Route: Oral Pain Assessment Pain Scale: 0 Pain Presence: None/Denies Pain Type: N/A Datetime: 06/14/2017 21:00 Stage of : Antepartum Labor Evaluation Frequency: 0 Monitor Mode: External Heart Rate FHR Baseline Rate: 140 Monitor Mode: External US FHR Baseline Changes: No Baseline Change Variability: Moderate 6-25 bpm Accelerations: 15X15 Decelerations: None Category: Category I Datetime: 06/14/2017 20:00 Stage of : Antepartum Labor Evaluation Frequency: 0 Monitor Mode: External Heart Rate FHR Baseline Rate: 135 Monitor Mode: External US FHR Baseline Changes: No Baseline Change Variability: Moderate 6-25 bpm Accelerations: 15X15 Decelerations: None Category: Category I Datetime: 06/14/2017 19:40 Assessment Type: Ongoing Assessment Maternal Assessment Level of Consciousness: Fully Conscious DTR's/Clonus: DTRs 2+; No Clonus Headache: Denies Blurred Vision: No Respiratory Effort: Unlabored; Regular Rhythm; Equal Expansion Breath Sounds, Left: Clear and Equal Breath Sounds, Right: Clear and Equal Nausea/Vomiting: Denies RUQ Epigastric Pain: Denies Lower Extremities Edema: None Degree: None Upper Extremities Edema: None Degree: None Facial Edema: None Fall Risk Assessment History of Falling: (0) No Secondary Diagnosis: (0) No Ambulatory Aid: (0) Bedrest/Nurse Assist IV Therapy: (20) Yes Gait: (0) Normal/Bedrest/Immobile Mental Status: (0) Oriented to Own Ability Fall Score: 20 Fall Risk Score Definition: No Risk: No action required Datetime: 06/14/2017 19:09 Labor Evaluation Frequency: 0 Monitor Mode: External Resting [place]one [place]: Relaxed Heart Rate FHR Baseline Rate: 140 Monitor Mode: External US FHR Baseline Changes: No Baseline Change Variability: Moderate 6-25 bpm Accelerations: 10X10 Decelerations: None Category: Category I Datetime: 06/14/2017 17:49 Labor Evaluation Frequency: 0 Monitor Mode: External Resting [place]: Relaxed Heart Rate FHR Baseline Rate: 150 Monitor Mode: External US FHR Baseline Changes: No Baseline Change Variability: Moderate 6-25 bpm Accelerations: 10X10 Decelerations: None Category: Category I Datetime: 06/14/2017 17:00 Labor Evaluation Frequency: 0 Monitor Mode: External Resting [place]: Relaxed Heart Rate FHR Baseline Rate: 140 Monitor Mode: External US FHR Baseline Changes: No Baseline Change Variability: Moderate 6-25 bpm Accelerations: 15X15 Decelerations: None Category: Category I Datetime: 06/14/2017 15:52 Labor Evaluation Frequency: 0 Monitor Mode: External Resting [place]: Relaxed Heart Rate FHR Baseline Rate: 140 Monitor Mode: External US FHR Baseline Changes: No Baseline Change Variability: Moderate 6-25 bpm Accelerations: 10X10 Decelerations: None Category: Category I Datetime: 06/14/2017 15:00 Labor Evaluation Frequency: 0 Monitor Mode: External Resting [place]: Relaxed Heart Rate FHR Baseline Rate: 140 Monitor Mode: External US FHR Baseline Changes: No Baseline Change Variability: Moderate 6-25 bpm Accelerations: 15X15 Decelerations: None Category: Category I Datetime: 06/14/2017 14:00 Labor Evaluation Frequency: 0 Monitor Mode: External Resting [place]: Relaxed Heart Rate FHR Baseline Rate: 140 Monitor Mode: External US FHR Baseline Changes: No Baseline Change Variability: Moderate 6-25 bpm Accelerations: 10X10 Decelerations: None Category: Category I Datetime: 06/14/2017 13:18 Labor Evaluation Frequency: 0 Monitor Mode: External Resting [place]: Relaxed Heart Rate FHR Baseline Rate: 140 Monitor Mode: External US FHR Baseline Changes: No Baseline Change Variability: Moderate 6-25 bpm Accelerations: 15X15 Decelerations: None Category: Category I Datetime: 06/14/2017 12:12 Stage of : Antepartum Temperature Route: Oral Pain Assessment Pain Scale: 0 Pain Presence: None/Denies Pain Goal: 0 Datetime: 06/14/2017 12:00 Labor Evaluation Frequency: 0 Monitor Mode: External Resting [place]: Relaxed Heart Rate FHR Baseline Rate: 140 Monitor Mode: External US FHR Baseline Changes: No Baseline Change Variability: Moderate 6-25 bpm Accelerations: 15X15 Decelerations: None Category: Category I Datetime: 06/14/2017 11:00 Labor Evaluation Frequency: 0 Monitor Mode: External Resting [place]: Relaxed Heart Rate FHR Baseline Rate: 140 Monitor Mode: External US FHR Baseline Changes: No Baseline Change Variability: Moderate 6-25 bpm Accelerations: 15X15 Decelerations: None Category: Category I Datetime: 06/14/2017 10:00 Labor Evaluation Frequency: 0 Monitor Mode: External Resting [place]: Relaxed Heart Rate FHR Baseline Rate: 140 Monitor Mode: External US FHR Baseline Changes: No Baseline Change Variability: Moderate 6-25 bpm Accelerations: 10X10 Decelerations: None Category: Category I Datetime: 06/14/2017 09:00 Labor Evaluation Frequency: 0 Monitor Mode: External Resting [place]: Relaxed Heart Rate FHR Baseline Rate: 140 Monitor Mode: External US FHR Baseline Changes: No Baseline Change Variability: Moderate 6-25 bpm Accelerations: 10X10 Decelerations: None Category: Category I Datetime: 06/14/2017 07:52 Stage of : Antepartum Temperature Route: Oral Pain Assessment Pain Scale: 0 Pain Presence: None/Denies Pain Goal: 0 Datetime: 06/14/2017 07:51 Monitor Mode: External Heart Rate FHR Baseline Rate: 130 Monitor Mode: External US FHR Baseline Changes: No Baseline Change Variability: Moderate 6-25 bpm Accelerations: 10X10 Decelerations: None Category: Category I Datetime: 06/14/2017 07:42 Assessment Type: Ongoing Assessment Maternal Assessment Level of Consciousness: Fully Conscious DTR's/Clonus: DTRs 2+; No Clonus Headache: Denies Blurred Vision: No Respiratory Effort: Unlabored; Regular Rhythm; Equal Expansion Breath Sounds, Left: Clear and Equal Breath Sounds, Right: Clear and Equal Nausea/Vomiting: Denies RUQ Epigastric Pain: Denies Lower Extremities Edema: None Degree: None Upper Extremities Edema: None Degree: None Facial Edema: None Fall Risk Assessment History of Falling: (0) No Secondary Diagnosis: (0) No Ambulatory Aid: (0) Bedrest/Nurse Assist IV Therapy: (20) Yes Gait: (0) Normal/Bedrest/Immobile Mental Status: (0) Oriented to Own Ability Fall Score: 20 Fall Risk Score Definition: No Risk: No action required Datetime: 06/14/2017 07:39 Stage of : Antepartum Datetime: 06/14/2017 07:10 Stage of : Antepartum Datetime: 06/14/2017 06:59 Labor Evaluation Frequency: NONE Monitor Mode: External Resting [place]one [place]: Relaxed Heart Rate FHR Baseline Rate: 130 Monitor Mode: External US Variability: Moderate 6-25 bpm Accelerations: 15X15 Decelerations: None Category: Category I Pain Presence: None/Denies Pain Type: N/A Pain Assessment Comments: PT SLEEPING WITH EVEN UNLABORED BREATHING Datetime: 06/14/2017 06:00 Labor Evaluation Frequency: NONE Monitor Mode: External Resting [place]: Relaxed Heart Rate FHR Baseline Rate: 130 Monitor Mode: External US Variability: Moderate 6-25 bpm Accelerations: 15X15 Decelerations: None Category: Category I Pain Presence: None/Denies Pain Type: N/A Pain Assessment Comments: PTSLEEPING WITH EVEN UNLABORED BREATHING Datetime: 06/14/2017 05:18 Stage of : Antepartum Pain Assessment Pain Scale: 4 Pain Presence: Constant Pain Type: Ache Pain Location: Head Pain Goal: 2 Pain Relief Measures: Pain Medication Given Datetime: 06/14/2017 05:11 Stage of : Antepartum Temperature Route: Oral Datetime: 06/14/2017 04:55 Stage of : Antepartum Datetime: 06/14/2017 04:15 Comments: VERY ACTIVE FETUS Datetime: 06/14/2017 04:00 Maternal Assessment Level of Consciousness: Fully Conscious DTR's/Clonus: DTRs 2+; No Clonus Labor Evaluation Frequency: NONE Monitor Mode: External Resting [place]: Relaxed Heart Rate FHR Baseline Rate: 130 Monitor Mode: External US Variability: Moderate 6-25 bpm Accelerations: None Decelerations: None Category: Category I Pain Presence: None/Denies Pain Type: N/A Datetime: 06/14/2017 03:00 Labor Evaluation Frequency: NONE Monitor Mode: External Resting [place]one [place]: Relaxed Heart Rate FHR Baseline Rate: 125 Monitor Mode: External US Variability: Moderate 6-25 bpm Accelerations: 15X15 Decelerations: None Category: Category I Pain Presence: None/Denies Pain Type: N/A Datetime: 06/14/2017 02:00 Maternal Assessment Level of Consciousness: Fully Conscious DTR's/Clonus: DTRs 2+; No Clonus Labor Evaluation Frequency: NONE Monitor Mode: External Resting [place]: Relaxed Heart Rate FHR Baseline Rate: 130 Monitor Mode: External US Variability: Moderate 6-25 bpm Accelerations: 15X15 Decelerations: None Category: Category I Datetime: 06/14/2017 01:59 EGA: 28.2 Datetime: 06/14/2017 01:00 Stage of : Antepartum Maternal Assessment Level of Consciousness: Fully Conscious Labor Evaluation Frequency: NONE Monitor Mode: External Resting [place]: Relaxed Comments: LOC DUE TO PT SLEEPING ON HER RIGHT SIDE Pain Presence: None/Denies Pain Type: N/A Datetime: 06/14/2017 00:00 Stage of : Antepartum DTR's/Clonus: DTRs 2+; No Clonus Breath Sounds, Left: Clear and Equal Breath Sounds, Right: Clear and Equal Labor Evaluation Frequency: NONE Monitor Mode: External Resting [place]: Relaxed Heart Rate FHR Baseline Rate: 130 Monitor Mode: External US Variability: Moderate 6-25 bpm Accelerations: 15X15 Decelerations: None Category: Category I Pain Presence: None/Denies Pain Type: N/A Datetime: 06/13/2017 23:39 Stage of : Antepartum Datetime: 06/13/2017 23:38 Monitor Mode: External US Datetime: 06/13/2017 23:00 Stage of : Antepartum Pain Presence: None/Denies Pain Type: N/A Datetime: 06/13/2017 22:57 Monitor Mode: External Contraction Comments: PT DENIES UC'S Contraction Comments: REAPPLIED AFTER SHOWER Monitor Mode: External US Comments: PT OFF MONITOR MOST OF THE HOUR IN THE SHOWER Comments: REAPPLIED AFTER SHOWER Datetime: 06/13/2017 22:00 Stage of : Antepartum DTR's/Clonus: DTRs 2+; No Clonus Temperature Route: Oral Monitor Mode: External Resting [place]one [place]: Relaxed Contraction Comments: NONE Heart Rate FHR Baseline Rate: 130 Monitor Mode: External US Variability: Moderate 6-25 bpm Comments: POOR QUALITY TRACING DUE TO PT SITTING UP TALKING TO HER VISITOR. Pain Presence: None/Denies Pain Type: N/A Datetime: 06/13/2017 21:00 Labor Evaluation Frequency: NONE Monitor Mode: External Resting [place]one [place]: Relaxed Heart Rate FHR Baseline Rate: 140 Monitor Mode: External US Variability: Moderate 6-25 bpm Accelerations: 15X15 Decelerations: None Category: Category I Pain Presence: None/Denies Pain Type: N/A Datetime: 06/13/2017 20:00 Maternal Assessment Level of Consciousness: Fully Conscious DTR's/Clonus: DTRs 2+; No Clonus Breath Sounds, Left: Clear and Equal Breath Sounds, Right: Clear and Equal Labor Evaluation Frequency: NONE Monitor Mode: External Resting [place]: Relaxed Heart Rate FHR Baseline Rate: 135 Monitor Mode: External US Variability: Moderate 6-25 bpm Accelerations: 15X15 Decelerations: None Category: Category I Datetime: 06/13/2017 19:25 Stage of : Antepartum Assessment Type: Ongoing Assessment Maternal Assessment Level of Consciousness: Fully Conscious DTR's/Clonus: DTRs 2+; No Clonus Headache: Denies Blurred Vision: No Respiratory Effort: Unlabored; Regular Rhythm; Equal Expansion Breath Sounds, Left: Clear and Equal Breath Sounds, Right: Clear and Equal Nausea/Vomiting: Denies RUQ Epigastric Pain: Denies Lower Extremities Edema: None Degree: None Upper Extremities Edema: None Degree: None Facial Edema: None Temperature Route: Oral Fall Risk Assessment History of Falling: (0) No Secondary Diagnosis: (0) No Ambulatory Aid: (0) Bedrest/Nurse Assist IV Therapy: (0) No Gait: (0) Normal/Bedrest/Immobile Mental Status: (0) Oriented to Own Ability Fall Score: 0 Fall Risk Score Definition: No Risk: No action required Contraction Comments: PT DENIES CRAMPING Comments: PT STATES + FM Pain Assessment Pain Scale: 3 Pain Presence: Constant Pain Type: Sharp Pain Location: Right Flank Pain Goal: 2 Pain Relief Measures: Comfort Measures Amniotic Fluid Amount: None Vaginal Bleeding: None Datetime: 06/13/2017 18:11 Labor Evaluation Frequency: 0 Monitor Mode: External Resting [place]one [place]: Relaxed Comments: fetus very active, difficult to keep on monitor Datetime: 06/13/2017 17:00 Maternal Assessment Level of Consciousness: Fully Conscious DTR's/Clonus: DTRs 2+ Blurred Vision: No Respiratory Effort: Unlabored Breath Sounds, Left: Clear and Equal Breath Sounds, Right: Clear and Equal Nausea/Vomiting: Denies RUQ Epigastric Pain: Denies Labor Evaluation Frequency: 1 Monitor Mode: External Duration (sec)2399: 60 Quality: Mild Resting [place]one [place]: Relaxed Heart Rate FHR Baseline Rate: 130 Monitor Mode: External US FHR Baseline Changes: No Baseline Change Variability: Moderate 6-25 bpm Accelerations: 10X10 Decelerations: None Category: Category I Pain Presence: None/Denies Datetime: 06/13/2017 16:04 Labor Evaluation Frequency: 3 Monitor Mode: External Duration (sec)2399: 50 Quality: Mild Resting Tone [place]: Relaxed Heart Rate FHR Baseline Rate: 130 Monitor Mode: External US FHR Baseline Changes: No Baseline Change Variability: Moderate 6-25 bpm Accelerations: 15X15 Decelerations: None Category: Category I Pain Presence: None/Denies Datetime: 06/13/2017 14:56 Maternal Assessment Level of Consciousness: Fully Conscious DTR's/Clonus: DTRs 2+ Blurred Vision: No Nausea/Vomiting: Denies RUQ Epigastric Pain: Denies Labor Evaluation Frequency: 0 Monitor Mode: External Resting Tone [place]: Relaxed Heart Rate FHR Baseline Rate: 130 Monitor Mode: External US FHR Baseline Changes: No Baseline Change Variability: Moderate 6-25 bpm Accelerations: 15X15 Decelerations: None Category: Category I Datetime: 06/13/2017 14:00 Maternal Assessment Level of Consciousness: Fully Conscious DTR's/Clonus: DTRs 2+ Blurred Vision: No Nausea/Vomiting: Denies RUQ Epigastric Pain: Denies Labor Evaluation Frequency: 1 Monitor Mode: External Duration (sec)2399: 60 Quality: Mild Resting Tone [place]: Relaxed Heart Rate FHR Baseline Rate: 130 Monitor Mode: External US FHR Baseline Changes: No Baseline Change Variability: Moderate 6-25 bpm Accelerations: 15X15 Decelerations: None Category: Category I Datetime: 06/13/2017 12:59 Maternal Assessment Level of Consciousness: Fully Conscious DTR's/Clonus: DTRs 1+ Headache: Denies Blurred Vision: No Nausea/Vomiting: Denies RUQ Epigastric Pain: Denies Facial Edema: None Labor Evaluation Frequency: 5 Monitor Mode: External Duration (sec)2399: 50-60 Quality: Mild Resting Tone [place]: Relaxed Heart Rate FHR Baseline Rate: 130 Monitor Mode: External US FHR Baseline Changes: No Baseline Change Variability: Moderate 6-25 bpm Accelerations: 15X15 Decelerations: None Category: Category I Datetime: 06/13/2017 12:00 Labor Evaluation Frequency: 0 Monitor Mode: External Resting Tone [place]: Relaxed Heart Rate FHR Baseline Rate: 130 Monitor Mode: External US FHR Baseline Changes: No Baseline Change Variability: Moderate 6-25 bpm Accelerations: 15X15 Decelerations: None Category: Category I Datetime: 06/13/2017 10:59 Labor Evaluation Frequency: 1 Monitor Mode: External Duration (sec)2399: 50 Quality: Mild Resting Tone [place]: Relaxed Heart Rate FHR Baseline Rate: 130 Monitor Mode: External US FHR Baseline Changes: No Baseline Change Variability: Moderate 6-25 bpm Accelerations: 15X15 Decelerations: None Category: Category I Datetime: 06/13/2017 10:00 Labor Evaluation Frequency: 1 Monitor Mode: External Duration (sec)2399: 60 Quality: Mild Resting Tone [place]: Relaxed Heart Rate FHR Baseline Rate: 125 Monitor Mode: External US FHR Baseline Changes: No Baseline Change Variability: Moderate 6-25 bpm Accelerations: 15X15 Decelerations: None Category: Category I Datetime: 06/13/2017 09:02 DTR's/Clonus: DTRs 1+ Labor Evaluation Frequency: 1 Monitor Mode: External Duration (sec)2399: 90 Quality: Mild Resting Tone [place]: Relaxed Heart Rate FHR Baseline Rate: 130 Monitor Mode: External US FHR Baseline Changes: No Baseline Change Variability: Moderate 6-25 bpm Accelerations: 15X15 Decelerations: None Category: Category I Datetime: 06/13/2017 08:52 Nausea/Vomiting: Present Datetime: 06/13/2017 08:12 Maternal Assessment Level of Consciousness: Fully Conscious DTR's/Clonus: DTRs 1+ Headache: Denies Blurred Vision: No Breath Sounds, Left: Clear and Equal Breath Sounds, Right: Clear and Equal Nausea/Vomiting: Denies RUQ Epigastric Pain: Denies Facial Edema: None Datetime: 06/13/2017 08:08 Comments: maternal pulse Datetime: 06/13/2017 08:00 Assessment Type: Ongoing Assessment Maternal Assessment Level of Consciousness: Fully Conscious DTR's/Clonus: DTRs 2+; No Clonus Headache: Denies Blurred Vision: No Respiratory Effort: Unlabored; Regular Rhythm; Equal Expansion Breath Sounds, Left: Clear and Equal Breath Sounds, Right: Clear and Equal Nausea/Vomiting: Denies RUQ Epigastric Pain: Denies Facial Edema: None Fall Risk Assessment History of Falling: (0) No Secondary Diagnosis: (0) No Ambulatory Aid: (0) Bedrest/Nurse Assist IV Therapy: (20) Yes Gait: (0) Normal/Bedrest/Immobile Mental Status: (0) Oriented to Own Ability Fall Score: 20 Fall Risk Score Definition: No Risk: No action required Datetime: 06/13/2017 06:00 Maternal Assessment Level of Consciousness: Fully Conscious DTR's/Clonus: DTRs 2+ Headache: Denies Blurred Vision: No Respiratory Effort: Unlabored Breath Sounds, Left: Clear and Equal Breath Sounds, Right: Clear and Equal Nausea/Vomiting: Denies RUQ Epigastric Pain: Denies Facial Edema: None Labor Evaluation Frequency: 0 Monitor Mode: External Duration (sec)2399: denies Resting Tone [place]: Relaxed Heart Rate FHR Baseline Rate: 135 Monitor Mode: External US Variability: Moderate 6-25 bpm Accelerations: 15X15 Decelerations: None Category: Category I Datetime: 06/13/2017 05:00 Labor Evaluation Frequency: x1 Monitor Mode: External Duration (sec)2399: 50 Quality: Mild Resting Tone [place]: Relaxed Heart Rate FHR Baseline Rate: 135 Monitor Mode: External US Variability: Moderate 6-25 bpm Accelerations: 15X15 Decelerations: None Category: Category I Pain Presence: None/Denies Datetime: 06/13/2017 04:00 Labor Evaluation Frequency: x2 Monitor Mode: External Duration (sec)2399: 60-70 Quality: Mild Resting Tone [place]: Relaxed Heart Rate FHR Baseline Rate: 135 Monitor Mode: External US Variability: Moderate 6-25 bpm Accelerations: 15X15 Decelerations: None Category: Category I Comments: loss contact due to maternal movements. Datetime: 06/13/2017 03:00 Labor Evaluation Frequency: x3 Monitor Mode: External Duration (sec)2399: 40-50 Quality: Mild Resting Tone [place]: Relaxed Heart Rate FHR Baseline Rate: 135 Monitor Mode: External US Variability: Moderate 6-25 bpm Accelerations: 15X15 Decelerations: None Pain Presence: None/Denies Datetime: 06/13/2017 02:00 Labor Evaluation Frequency: 0 Monitor Mode: External Duration (sec)2399: denies Resting Tone [place]: Relaxed Heart Rate FHR Baseline Rate: 135 Monitor Mode: External US Variability: Moderate 6-25 bpm Accelerations: 15X15 Decelerations: None Category: Category I Pain Presence: None/Denies Pain Type: N/A Datetime: 06/13/2017 01:00 Labor Evaluation Frequency: 0 Monitor Mode: External Duration (sec)2399: denies Resting Tone [place]: Relaxed Heart Rate FHR Baseline Rate: 135 Monitor Mode: External US Variability: Moderate 6-25 bpm Accelerations: 15X15 Decelerations: None Category: Category I Pain Presence: None/Denies Datetime: 06/13/2017 00:00 Labor Evaluation Frequency: x1 Monitor Mode: External Duration (sec)2399: 60 Quality: Mild Resting Tone [place]: Relaxed Heart Rate FHR Baseline Rate: 135 Monitor Mode: External US Variability: Moderate 6-25 bpm Accelerations: 15X15 Decelerations: None Category: Category I Pain Presence: None/Denies Datetime: 06/12/2017 23:00 Labor Evaluation Frequency: 0 Monitor Mode: External Resting Tone [place]: Relaxed Heart Rate FHR Baseline Rate: 130 Pain Presence: None/Denies Datetime: 06/12/2017 22:18 Comments: maternal heart rate detected. Datetime: 06/12/2017 22:00 Maternal Assessment Level of Consciousness: Fully Conscious DTR's/Clonus: DTRs 2+ Headache: Denies Blurred Vision: No Nausea/Vomiting: Denies RUQ Epigastric Pain: Denies Facial Edema: None Labor Evaluation Frequency: 0 Monitor Mode: External Duration (sec)2399: DENIES Resting Tone [place]: Relaxed Heart Rate FHR Baseline Rate: 135 Monitor Mode: External US Variability: Moderate 6-25 bpm Accelerations: 15X15 Decelerations: None Category: Category I Pain Presence: None/Denies Datetime: 06/12/2017 21:00 Labor Evaluation Frequency: 0 Monitor Mode: External Resting Tone [place]: Relaxed Heart Rate FHR Baseline Rate: 140 Monitor Mode: External US Variability: Moderate 6-25 bpm Accelerations: 15X15 Decelerations: None Category: Category I Comments: LOSS OF CONTACT DUE TO EXCESSIVE MOVEMENT. Pain Presence: None/Denies Datetime: 06/12/2017 20:00 Labor Evaluation Frequency: IRREGULAR Monitor Mode: External Duration (sec)2399: 40-50 Quality: Mild Resting Tone [place]: Relaxed Heart Rate FHR Baseline Rate: 140 Monitor Mode: External US Variability: Moderate 6-25 bpm Accelerations: 15X15 Decelerations: None Category: Category I Pain Presence: None/Denies Datetime: 06/12/2017 19:24 Stage of : Antepartum Assessment Type: Ongoing Assessment Maternal Assessment Level of Consciousness: Fully Conscious DTR's/Clonus: DTRs 2+; No Clonus Headache: Denies Blurred Vision: No Respiratory Effort: Unlabored; Regular Rhythm; Equal Expansion Breath Sounds, Left: Clear and Equal Breath Sounds, Right: Clear and Equal Nausea/Vomiting: Denies RUQ Epigastric Pain: Denies Lower Extremities Edema: None Degree: None Upper Extremities Edema: None Degree: None Facial Edema: None Fall Risk Assessment History of Falling: (0) No Secondary Diagnosis: (0) No Ambulatory Aid: (0) Bedrest/Nurse Assist IV Therapy: (0) No Gait: (0) Normal/Bedrest/Immobile Mental Status: (0) Oriented to Own Ability Fall Score: 0 Fall Risk Score Definition: No Risk: No action required Pain Presence: None/Denies Datetime: 06/12/2017 18:17 Vaginal Exam Dilatation (cms): 1.0 Exam By: dr kim Datetime: 06/12/2017 17:53 Labor Evaluation Frequency: q10 min Monitor Mode: External Quality: Mild Resting Tone [place]: Relaxed Heart Rate FHR Baseline Rate: 130 Monitor Mode: External US FHR Baseline Changes: No Baseline Change Variability: Moderate 6-25 bpm Accelerations: 15X15 Decelerations: None Category: Category I Datetime: 06/12/2017 17:16 Assessment Type: Admission Assessment Maternal Assessment Level of Consciousness: Fully Conscious DTR's/Clonus: DTRs 2+; No Clonus Headache: Denies Blurred Vision: No Respiratory Effort: Unlabored; Regular Rhythm; Equal Expansion Breath Sounds, Left: Clear and Equal Breath Sounds, Right: Clear and Equal Nausea/Vomiting: Denies RUQ Epigastric Pain: Denies Facial Edema: None Fall Risk Assessment History of Falling: (0) No Secondary Diagnosis: (0) No Ambulatory Aid: (0) Bedrest/Nurse Assist IV Therapy: (20) Yes Gait: (0) Normal/Bedrest/Immobile Mental Status: (0) Oriented to Own Ability Fall Score: 20 Fall Risk Score Definition: No Risk: No action required Datetime: 06/12/2017 16:51 Labor Evaluation Frequency: q2-4 Monitor Mode: External Duration (sec)2399: 30-50 Quality: Mild Resting Tone [place]: Relaxed Heart Rate FHR Baseline Rate: 140 Monitor Mode: External US FHR Baseline Changes: No Baseline Change Variability: Moderate 6-25 bpm Accelerations: 15X15 Decelerations: None Category: Category I Pain Presence: None/Denies Datetime: 06/12/2017 13:00 Fall Score: 0 Fall Risk Score Definition: No Risk: No action required Datetime: 06/12/2017 12:50 Time of Arrival: 06/12/2017 17:30 EGA: 28.2 Arrived By: Wheelchair Arrived From: Other Unit in Hospital
[2017-08-20 17:35] LABS: BASOPHILS % 0.1 % (0.0-2.0); EOSINOPHILS # 0.1 10^3/ul (0.0-0.5); EOSINOPHILS % 0.9 % (0.0-7.0); HEMATOCRIT 35.4 % (37.0-47.0); HEMOGLOBIN 11.7 g/dl (12.0-16.0); LYMPHOCYTES # 1.8 10^3/ul (0.8-2.9); LYMPHOCYTES % 21.4 % (15.0-51.0); MEAN CORPUSCULAR HEMOGLOBIN 30.5 pg (29.0-33.0); MEAN CORPUSCULAR HGB CONC 33.1 g/dl (32.0-37.0); MEAN CORPUSCULAR VOLUME 92.2 fl (82.0-101.0); MEAN PLATELET VOLUME 12.2 fl (7.4-10.4); MONOCYTE # 0.5 10^3/ul (0.3-0.9); MONOCYTES % 6.1 % (0.0-11.0); NEUTROPHIL # 5.8 10^3/ul (1.6-7.5); NEUTROPHILS % 71.1 % (39.0-77.0); PLATELET COUNT 187 10^3/UL (140-415); RED BLOOD COUNT 3.84 10^6/ul (4.20-5.40); RED CELL DISTRIBUTION WIDTH 13.2 % (11.5-14.5); WHITE BLOOD COUNT 8.2 10^3/ul (4.8-10.8)
[2017-08-20 18:02] LABS: INR 0.89; PT RATIO 0.9
[2017-08-20 18:03] LABS: PARTIAL THROMBOPLASTIN TIME 29.7 Sec (25.0-35.0)
[2017-08-20 19:15] LABS: ALBUMIN 3.3 g/dl (3.3-4.9); ALBUMIN/GLOBULIN RATIO 0.89; BILIRUBIN,INDIRECT 0.2 mg/dl (0-1.1); BILIRUBIN,TOTAL 0.2 mg/dl (0.2-1.3); CALCIUM 8.7 mg/dl (8.4-10.2); CREATININE 0.46 mg/dl (0.44-1.00); POTASSIUM 3.7 mmol/L (3.5-5.1)
[2017-08-21] MEDS: LACTATED RINGER'S 1,000 ML IV SCH ×3 (00:04→14:46)
[2017-08-21] MEDS ORDERED: OXYTOCIN 30 UNITS/LR 500 ML IV SCH (11:00)
[2017-08-21] MEDS ORDERED: FENTAnyl 2MCG/ML-ROPIV 0.2% 100 ML ONE (14:44)
[2017-08-21] MEDS ORDERED: KETOROLAC 30 MG INJ IV PRN (15:00)
[2017-08-21] MEDS ORDERED: FENTAnyl 2MCG/ML-ROPIV 0.2% 100 ML BAG EPI SCH (15:00)
[2017-08-21] MEDS ORDERED: HYDROmorphONE 0.5 MG/0.5 ML SYG IV PRN ×2 (15:00)
[2017-08-21] MEDS ORDERED: DIPHENHYDRAMINE 50 MG INJ IV PRN (15:00)
[2017-08-21] MEDS ORDERED: NALOXONE (0.4 MG/ML) INJ IV PRN (15:00)
[2017-08-21] MEDS ORDERED: ONDANSETRON 4 MG INJ IV PRN ×2 (15:00→21:00)
[2017-08-21] MEDS ORDERED: ZOLPIDEM 5 MG TAB PO PRN (15:00)
--- NOTE | 2017-08-21 18:57 | LDN ---
Date/Time of Note Date/Time of Note DATE: 08/21/17 TIME: 18:54 Delivery Summary Normal spontaneous vaginal delivery baby girl from OA position shoulders delivered without difficulty rest of the baby's body followed cord clamped after stopped pulsation placenta spontaneous expulsion inspected complete perineovaginal examination no laceration estimated blood loss 200 cc Weeks of Gestation 38 weeks 1 day Placenta Delivered: Spontaneously Meconium: none Episiotomy: No Laceration repair: None Anesthesia type: Epidural Sponge & Needle done & correct: Yes All needle counts correct: Yes Any foreign bodies felt in the: No Problems: Infant Delivery Information Sex Sex: female Apgars 1 Minute: 9 5 Minute: 9 Suctioning Nose & mouth suctioned at suhas: Yes Delee suction performed: No Umbilical Cord Umbilical cord with: 3 Vessels Cord presentations: no nuchal cord Cord Blood was obtained: Yes RONNY HERNÁNDEZ MD Aug 21, 2017 18:57
[2017-08-21 19:30] VITALS: BP 106/62; PULSE 74; RESP 21
[2017-08-21 21:00] VITALS: BP 103/61; PULSE 76; RESP 20
[2017-08-21] MEDS ORDERED: ACETAMINOPHEN 325 MG TAB PO PRN (21:00)
[2017-08-21] MEDS ORDERED: WITCH HAZEL/GLYCERIN PAD PR PRN (21:00)
[2017-08-21] MEDS ORDERED: LANOLIN 7 GM TUBE TOP PRN (21:00)
[2017-08-21] MEDS ORDERED: BENZOCAINE 20% 56 ML SPRAY TOP PRN (21:00)
[2017-08-21] MEDS ORDERED: DIBUCAINE 1% 30 GM OINT PR PRN (21:00)
[2017-08-21] MEDS ORDERED: HYDROCODONE/APAP (5/325) TAB PO PRN ×2 (21:00)
[2017-08-21] MEDS ORDERED: OXYCODONE/ASPIRIN (4.88/325) TAB PO PRN ×2 (21:00)
[2017-08-21 22:00] VITALS: BP 102/64; PULSE 76; RESP 20
[2017-08-21] MEDS: OXYTOCIN 30 UNITS/LR 500 ML IV SCH (22:30)
[2017-08-21] MEDS: SENNA/DOCUSATE NA (8.6MG/50MG) TAB PO SCH (22:31)
[2017-08-22 00:05] VITALS: BP 103/60; PULSE 75; RESP 18
[2017-08-22] MEDS: OXYTOCIN 30 UNITS/LR 500 ML IV SCH (00:40)
[2017-08-22] MEDS: IBUPROFEN 600 MG TAB PO SCH ×5 (00:54→23:55)
[2017-08-22 04:00] VITALS: BP 98/56; PULSE 74; RESP 20
[2017-08-22 08:00] VITALS: BP 97/60; PULSE 78; RESP 17
[2017-08-22] MEDS: SENNA/DOCUSATE NA (8.6MG/50MG) TAB PO SCH ×2 (09:20→22:03)
--- NOTE | 2017-08-22 09:30 | QN ---
Documentation Comment day 1 Afebrile Vital signs are stable Dominant soft Uterus firm Lochia normal Treatment is normal Plan of a.m. discharge discussed. RONNY HERNÁNDEZ MD Aug 22, 2017 09:30
[2017-08-22 11:55] LABS: BASOPHILS % 0.2 % (0.0-2.0); EOSINOPHILS % 0.3 % (0.0-7.0); HEMATOCRIT 33.6 % (37.0-47.0); HEMOGLOBIN 11.3 g/dl (12.0-16.0); LYMPHOCYTES % 16.8 % (15.0-51.0); MEAN CORPUSCULAR HEMOGLOBIN 31.3 pg (29.0-33.0); MEAN CORPUSCULAR HGB CONC 33.6 g/dl (32.0-37.0); MEAN CORPUSCULAR VOLUME 93.1 fl (82.0-101.0); MEAN PLATELET VOLUME 12.1 fl (7.4-10.4); MONOCYTE # 0.7 10^3/ul (0.3-0.9); MONOCYTES % 5.6 % (0.0-11.0); NEUTROPHIL # 9.1 10^3/ul (1.6-7.5); NEUTROPHILS % 76.7 % (39.0-77.0); PLATELET COUNT 194 10^3/UL (140-415); RED BLOOD COUNT 3.61 10^6/ul (4.20-5.40); RED CELL DISTRIBUTION WIDTH 13.3 % (11.5-14.5); WHITE BLOOD COUNT 11.9 10^3/ul (4.8-10.8)
[2017-08-22 12:00] VITALS: BP 94/60; PULSE 76; RESP 18
[2017-08-22 16:00] VITALS: BP 103/65; PULSE 68; RESP 18
[2017-08-22 20:00] VITALS: BP 108/67; PULSE 81; RESP 18
[2017-08-23 04:00] VITALS: BP 95/57; PULSE 69; RESP 20
[2017-08-23] MEDS: IBUPROFEN 600 MG TAB PO SCH ×2 (05:43→11:16)
[2017-08-23 08:36] VITALS: BP 104/63; PULSE 69; RESP 18
[2017-08-23] MEDS ORDERED: MEASLES,MUMPS,RUBELLA VACCINE INJ SC* ONE (09:00)
[2017-08-23] MEDS: SENNA/DOCUSATE NA (8.6MG/50MG) TAB PO SCH (09:08)
--- NOTE | 2017-08-23 14:08 | PD.PPDC ---
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 Condition Patient Condition: Good Diet Diet: Resume Regular Diet Activity/Restrictions Activity: Normal Activity May Shower Restrictions: No Exercising No Lifting No Driving No Sexual Activity Nothing in the Vagina No [place] No Tampons, douche Follow-up Follow-up with Physician: 2, Week/Weeks Provider Information: instruction given recommended to make appointment to be seen at the clinic in 2 weeks Return to clinic for [employer] Instructions: Fever greater than 101 Chills Worsening abdominal pain Excessive Vaginal Bleeding More than 2 pads per hour Unable to tolerate diet OB Instructions: Breast Tenderness Depression Blurried Vision Headache RONNY HERNÁNDEZ MD Aug 23, 2017 14:08
--- NOTE | 2017-08-23 14:10 | DS ---
Date/Time of Note Date/Time of Note DATE: 08/23/17 TIME: 14:09 Discharge Summary Admission/Discharge Info Admit Date/Time Aug 20, 2017 at 17:00 Discharge Date/Time August 23, 2017 at 1400 Discharge Diagnosis Post normal vaginal delivery day 2 Patient Condition: Good Procedures Normal vaginal delivery Hx of Present Illness Term Hospital Course Satisfactory recovery uneventful Home Meds Reported Medications Ferrous Sulfate (Ferrous Sulfate) 325 Mg Tablet.dr, 325 MG PO DAILY 08/20/17 Vit #76/Iron,Carb/FA (Pnv 29-1 Tablet) 1 Each Tablet, 1 EACH PO DAILY, TAB 08/20/17 Follow-up Plan instruction given recommended to make appointment to be seen at the clinic in 2 weeks Primary Care Provider Care Physician No Primary Time spent on discharge: < 30 minutes RONNY HERNÁNDEZ MD Aug 23, 2017 14:10
== END 2017-08-23 15:30 | disposition home health service (06) | DRG 775 ==
LOC: OBT 14:42 → OBG 14:42 → OBT 17:00 → L-D 17:00 → PP1 08-21 20:38
PROVIDERS: ADMIT Obstetrics & Gynecology; ATTEND Obstetrics & Gynecology
PROC: 10E0XZZ Delivery of Products of Conception, External Approach (ICD-10-PCS; principal; 2017-08-21)
DX: O80 Encounter for full-term uncomplicated delivery (principal); Z37.0 Single live birth; Z3A.38 38 weeks gestation of pregnancy
CPT/HCPCS: 62319; 80053; 85025; 85610; 85730; 86592; 86900; 86901; 87340; 99464; G0463; J2590; J3010; J7120

== ENCOUNTER 2018-06-11 07:56 | Emergency (ER) | END 2018-06-11 10:49 | disposition home or self-care (01) ==

== ENCOUNTER 2019-01-20 08:57 | Emergency (ER) | payer OTHER ==
[~2019-01-20] VITALS: Ht 160 cm; Wt 60.3 kg
[~2019-01-20 08:57] MED LIST changes: +ACET325T33 PO; -ACET500C5 PO; -ACET500T98; -CEPH-443 PO; -DOCU-144 PO; +FAMO-96 PO; +FERR325T5 PO; -IBUP-1542 PO; -LORA10TA3 PO; -NITR-58 PO; -ONDA4TAB14 PO; -OSLT75C PO; -POLY17PO6 PO; +PREN-99 PO; -TRAM50TA2 PO
[2019-01-20 09:12] VITALS: BP 121/64; PULSE 69; RESP 18; Ht 160 cm; Wt 60.3 kg
--- NOTE | 2019-01-20 09:52 | ERD ---
ER Documentation Chief Complaint Chief Complaint painful urination x2 days, feels like heart goes fast sometimes HPI 33-year-old woman complaining of palpitations and dysuria x2 days, she is also had increased urinary frequency and suprapubic discomfort. She denies fevers or chills, no back pain, no exertional chest discomfort, no shortness of breath, no headache or blurry vision. ROS All systems reviewed and are negative except as per history of present illness. Medications Home Meds Active Scripts Cephalexin* (Keflex*) 500 Mg Capsule, 500 MG PO QID for 5 Days, CAP Prov:RIGOBERTO BRIDGES MD 01/20/19 Acetaminophen* (Tylenol*) 325 Mg Tablet, 2 TAB PO Q6 PRN for PAIN AND OR ELEVATED TEMP, #20 TAB Prov:ZARINA DAWN PA-C 06/11/18 Famotidine* (Pepcid*) 20 Mg Tablet, 20 MG PO BID for 4 Days, #30 TAB Prov:ZARINA DAWN PA-C 06/11/18 Reported Medications Ferrous Sulfate (Ferrous Sulfate) 325 Mg Tablet., 325 MG PO DAILY 08/20/17 Vit #76/Iron,Carb/FA (Pnv 29-1 Tablet) 1 Each Tablet, 1 EACH PO DAILY, TAB 08/20/17 Allergies Allergies: Coded Allergies: No Known Allergy (Unverified , 06/11/18) PMhx/Soc History of Surgery: No Anesthesia Reaction: No Hx Neurological Disorder: No Hx Respiratory Disorders: No Hx Cardiac Disorders: No Hx Psychiatric Problems: No Hx Miscellaneous Medical Probl: No Hx Alcohol Use: No Hx Substance Use: No Hx Tobacco Use: No FmHx Family History: No diabetes Physical Exam Vitals Vital Signs Date Temp Pulse Resp B/P (MAP) Pulse Ox O2 O2 Flow FiO2 Time Delivery Rate 01/20/19 97.9 69 18 121/64 100 09:12 (83) Physical Exam GENERAL: Well-developed, well-nourished, well-hydrated, in no apparent distress, looks nontoxic in appearance HEENT: Moist mucous membranes, pink conjunctiva, no cervical spine tenderness or step-off deformities, no goiter, no jaundice or icterus, extraocular movements intact without pain. No submandibular induration, and no pharyngeal erythema NEURO: Alert and oriented 3, cranial nerves II through XII intact bilaterally, pupils equal round reactive to light, no focal deficits or facial asymmetry, sensation intact distally Strength 5/5 in upper and lower extremities bilaterally CARDIAC: Regular rate and rhythm, no murmurs rubs or gallops LUNGS: Clear bilaterally no wheezing crackles or stridor ABDOMEN: Soft nontender, no guarding, no rigidity, no rebound, no psoas sign no obturator sign. Normoactive bowel sounds SKIN: Warm and dry to touch, no abrasions, contusions, or hematomas, no lacerations, no ecchymosis, no target lesions, and without ulcers EXTREMITIES: No clubbing cyanosis or edema, calves are bilaterally symmetrical, no Homans sign, no popliteal cord sign. Distal pulses equal and bilateral PSYCH: Normal affect without agitation or irritability Results 24 hrs Laboratory Tests Test 01/20/19 10:27 01/20/19 10:28 Urine Color STRAW Urine Clarity SLIGHTLY CLOUDY Urine pH 6.0 Urine Specific [place] 1.005 Urine Ketones NEGATIVE mg/dL Urine Nitrite NEGATIVE mg/dL Urine Bilirubin NEGATIVE mg/dL Urine Urobilinogen NEGATIVE mg/dL Urine Leukocyte Esterase NEGATIVE [place]/ul Urine Microscopic RBC 2 /HPF Urine Microscopic WBC 1 /HPF Urine Squamous Epithelial Cells FEW /HPF Urine Bacteria FEW /HPF Urine Hemoglobin 1+ mg/dL Urine Glucose NEGATIVE mg/dL Urine Total Protein NEGATIVE mg/dl POC Beta HCG, Qualitative NEGATIVE Current Medications Medications Dose Sig/Lois Start Time Status Last (Trade) Ordered Route PRN Stop Time Admin Dose Reason Admin Ibuprofen 600 mg ONCE ONCE 01/20/19 DC 01/20/19 (Motrin) PO 10:00 10:38 01/20/19 10:01 Procedures/MDM test was negative, urinalysis was equivocal although given her symptoms I will prescribe her antibiotics EKG: Read by me reveals normal sinus rhythm at 64 bpm, right axis deviation, narrow QRS complex, no concerning ST elevations or depressions noted I administered ibuprofen 600 mg p.o. x1 Differential diagnoses considered, included but not limited to acute coronary syndrome, pulmonary embolism, aortic dissection, abdominal aortic aneurysm, sepsis, stroke, meningitis, encephalitis, pneumonia, appendicitis, cholecystitis, bowel obstruction, pyelonephritis, nephrolithiasis, cystitis, as well as metabolic, hematologic, and electrolyte abnormalities. As well as abscess, cellulitis, fractures, and dislocations. Patient feels much better at this time, and vital signs are normal, symptoms have improved. I did give strict instructions to return to the ED if symptoms continue or worsen, patient will otherwise follow-up with primary care physician. Patient understood instructions and agreed to plan. Disclaimer: Inadvertent spelling and grammatical errors are likely due to EHR/dictation software use and do not reflect on the overall quality of patient care. Also, please note that the electronic time recorded on this note does not necessarily reflect the actual time of the patient encounter. Departure Diagnosis: Primary Impression: Acute UTI Additional Impression: Palpitations Condition: Good RIGOBERTO BRIDGES MD Jan 20, 2019 09:52
[2019-01-20] MEDS ORDERED: IBUPROFEN 600 MG TAB PO ONE (10:00)
[2019-01-20] MEDS ORDERED: CEPH-443 PO (11:17)
== END 2019-01-20 12:05 | disposition home or self-care (01) ==
LOC: FTE 08:57
DX: N39.0 Urinary tract infection, site not specified (principal); R00.2 Palpitations
CPT/HCPCS: 81001; 81025; 93005; Z7610